=== PATIENT | male | born 1980 | race Caucasian/White ===

== ENCOUNTER 2017-03-09 10:35 | Inpatient (IN) | payer OTHER ==
[~2017-03-09] VITALS: Ht 182.9 cm; Wt 74.8 kg
[2017-03-09] VITALS (7 sets, daily range): BP systolic 134–205; BP diastolic 68–110
[~2017-03-09 10:35] MED LIST: HUMALOG100 UNIT/1 SUBQ; LANTUS SOL100 UNIT/1 SUBQ; LEVOTHYROXINE75 MCG ORAL; LOSARTAN POTASS25 MG ORAL
[2017-03-09] MEDS ORDERED: Morphine Sulfate 4mg/ml Inj IVP ONE (11:00)
[2017-03-09] MEDS ORDERED: Metoclopramide 10mg/2ml Inj IVP ONE (11:00)
--- NOTE | 2017-03-09 11:14 | Emergency Room Report ---
History of Present Illness General Chief Complaint: Abdominal Pain Source: Patient Present Illness HPI Patient present with complaints of epigastric discomfort and vomiting Patient reports that initially symptoms started on Saturday He had done better by Saturday an is able to eat a small amountd however the symptoms again started Denies any chest pain or shortness of breath He has increased cramping in the epigastric mid abdomen Denies any lower abdominal pain Denies any fevers or chills denies any dysuria frequency denies any recent travel denies any rash Allergies: Coded Allergies: CEFACLOR (Verified Allergy, Unknown, 07/22/15) PENICILLINS (Verified Allergy, Unknown, 07/22/15) Patient History Past Medical History: see triage record Pertinent Family History: none Reviewed Nursing Documentation: PMH: Agreed, PSxH: Agreed Nursing Documentation-PMH Hx Diabetes: Yes - DM1 Hx Dialysis: Yes - CKD Stg4 Review of Systems All Other Systems: negative except mentioned in HPI Physical Exam Vital Signs Date Time Temp Pulse Resp B/P (MAP) Pulse Ox O2 Delivery O2 Flow Rate FiO2 03/09/17 10:41 97.5 93 16 199/107 99 Room Air Sp02 EP Interpretation: reviewed, normal General Appearance: well appearing, no apparent distress Head: normocephalic, atraumatic Eyes: bilateral eye PERRL, bilateral eye EOMI ENT: hearing grossly normal, normal pharynx, TMs + canals normal, uvula midline Neck: full range of motion, supple, no meningismus, no bony tend Respiratory: lungs clear, normal breath sounds, no rhonchi, no respiratory distress, no retraction, no accessory muscle use Cardiovascular #1: normal peripheral pulses, regular rate, rhythm, no edema, no gallop, no JVD, no murmur Gastrointestinal: normal bowel sounds, non tender - On palpation however subjectively points to the epigastric region, soft, no mass, no organomegaly, non-distended, no guarding, no hernia, no pulsatile mass, no rebound Genitourinary: no CVA tenderness Musculoskeletal: normal inspection Neurologic: oriented x3, responsive, family psychologist III-XII nml as tested, motor strength/ tone normal, sensory intact Psychiatric: mood/affect normal Skin: normal color, no rash, warm/dry, palpation normal Lymphatic: normal inspection, no adenopathy Medical Decision Making Diagnostic Impression: Primary Impression: Renal failure (ARF), acute on chronic Additional Impression: Vomiting ER Course The patient's blood work revealed significantly elevated kidney function Talking to the patient he now provides information regarding worsening renal disease being on a transplant list This was not initially provided as far as history Patient's kidney function however has worsened significantly from previous At this time further hydrated and admitted for further care Labs Test 03/09/17 11:15 03/09/17 12:05 White Blood Count 7.8 K/UL (4.8-10.8) Red Blood Count 3.25 M/UL (4.70-6.10) Hemoglobin 9.8 G/DL (14.2-18.0) Hematocrit 28.5 % (42.0-52.0) Mean Corpuscular Volume 88 FL (80-99) Mean Corpuscular Hemoglobin 30.1 PG (27.0-31.0) Mean Corpuscular Hemoglobin Concent 34.4 G/DL (32.0-36.0) Red Cell Distribution Width 11.8 % (11.6-14.8) Platelet Count 162 K/UL (150-450) Mean Platelet Volume 6.6 FL (6.5-10.1) Neutrophils (%) (Auto) 80.2 % (45.0-75.0) Lymphocytes (%) (Auto) 13.5 % (20.0-45.0) Monocytes (%) (Auto) 3.4 % (1.0-10.0) Eosinophils (%) (Auto) 1.7 % (0.0-3.0) Basophils (%) (Auto) 1.1 % (0.0-2.0) Sodium Level 139 MMOL/L (136-145) Potassium Level 4.0 MMOL/L (3.5-5.1) Chloride Level 105 MMOL/L (98-107) Carbon Dioxide Level 22 MMOL/L (21-32) Anion Gap 12 mmol/L (5-15) Blood Urea Nitrogen 81 mg/dL (7-18) Creatinine 7.5 MG/DL (0.55-1.30) Estimat Glomerular Filtration Rate 8.2 mL/min (>60) Glucose Level 202 MG/DL (74-106) Calcium Level 8.9 MG/DL (8.5-10.1) Total Bilirubin 0.5 MG/DL (0.2-1.0) Aspartate Amino Transf (AST/SGOT) 20 U/L (15-37) Alanine Aminotransferase (ALT/SGPT) 21 U/L (12-78) Alkaline Phosphatase 122 U/L (46-116) Total Protein 6.7 G/DL (6.4-8.2) Albumin 3.0 G/DL (3.4-5.0) Globulin 3.7 g/dL Albumin/Globulin Ratio 0.8 (1.0-2.7) Lipase 120 U/L (73-393) Urine Color Pale yellow Urine Appearance Clear Urine pH 6 (4.5-8.0) Urine Specific [place] 1.015 (1.005-1.035) Urine Protein 4+ (NEGATIVE) Urine Glucose (UA) 3+ (NEGATIVE) Urine Ketones Negative (NEGATIVE) Urine Occult Blood 4+ (NEGATIVE) Urine Nitrite Negative (NEGATIVE) Urine Bilirubin Negative (NEGATIVE) Urine Urobilinogen Normal MG/DL (0.0-1.0) Urine Leukocyte Esterase Negative (NEGATIVE) Urine RBC 10-15 /HPF (0 - 0) Urine WBC 0-2 /HPF (0 - 0) Urine Squamous Epithelial Cells Occasional /LPF Urine Bacteria Occasional /HPF (NONE) Urine Yeast Few /HPF (NONE) Rhythm Strip Diag. Results EP Interpretation: yes Rate: 66 Rhythm: NSR, no PVC's, no ectopy Last Vital Signs Date Time Temp Pulse Resp B/P (MAP) Pulse Ox O2 Delivery O2 Flow Rate FiO2 03/09/17 10:41 97.5 93 16 199/107 99 Room Air Status: improved Disposition: ADMITTED INPATIENT Condition: Serious JOSI SWENSON D.O. Mar 09, 2017 11:14
[2017-03-09 11:40] LABS: BASOPHILS % (AUTO) 1.1 % (0.0-2.0); EOSINOPHILS % (AUTO) 1.7 % (0.0-3.0); LYMPHOCYTES % (AUTO) 13.5 % (20.0-45.0); MEAN CORPUSCULAR HEMOGLOBIN 30.1 PG (27.0-31.0); MEAN CORPUSCULAR HGB CONC 34.4 G/DL (32.0-36.0); MEAN CORPUSCULAR VOLUME 88 FL (80-99); MEAN PLATELET VOLUME 6.6 FL (6.5-10.1); MONOCYTES % (AUTO) 3.4 % (1.0-10.0); NEUTROPHILS % (AUTO) 80.2 % (45.0-75.0); PLATELET COUNT 162 K/UL (150-450); RED BLOOD COUNT 3.25 M/UL (4.70-6.10); RED CELL DISTRIBUTION WIDTH 11.8 % (11.6-14.8); WHITE BLOOD COUNT 7.8 K/UL (4.8-10.8)
[2017-03-09 11:51] LABS: ANION GAP 12 mmol/L (5-15); CALCIUM 8.9 MG/DL (8.5-10.1); CARBON DIOXIDE 22 MMOL/L (21-32); CHLORIDE 105 MMOL/L (98-107); CREATININE 7.5 MG/DL (0.55-1.30); GLOMERULAR FILTRATION RATE 8.2 mL/min (>60); SODIUM 139 MMOL/L (136-145)
[2017-03-09 11:55] LABS: ALANINE AMINOTRANSFERASE 21 U/L (12-78); ALBUMIN/GLOBULIN RATIO 0.8 (1.0-2.7); ASPARTATE AMINO TRANSFERASE 20 U/L (15-37); LIPASE 120 U/L (73-393); TOTAL PROTEIN 6.7 G/DL (6.4-8.2)
[2017-03-09 12:55] LABS: APPEARANCE,URINE CLEAR; KETONES,URINE NEGATIVE (NEGATIVE); LEUKOCYTE ESTERASE ,URINE NEGATIVE (NEGATIVE); NITRITE,URINE NEGATIVE (NEGATIVE); PH,URINE 6 (4.5-8.0); PROTEIN,URINE 4+ (NEGATIVE); UROBILINOGEN,URINE NORMAL MG/DL (0.0-1.0)
[2017-03-09 13:16] LABS: BACTERIA,URINE OCCASIONAL /HPF; SQUAMOUS EPITHELIAL CELL,UR OCCASIONAL /LPF (NONE/OCC); WBC,URINE 0-2 /HPF (0 - 0); YEAST,URINE FEW /HPF
[2017-03-09] MEDS ORDERED: Enalaprilat 2.5mg/2ml Inj IV ONE (13:45)
[2017-03-09] MEDS ORDERED: cloNIDine 0.2mg Tab ORAL ONE (14:00)
[2017-03-09] MEDS ORDERED: Acetaminophen 500mg (ES) tab ORAL PRN (15:00)
[2017-03-09] MEDS: NovoLOG Insulin Flexpen SUBQ SCH ×3 (17:15→20:58)
[2017-03-09] MEDS: HydrALAZINE 50mg tab ORAL SCH ×2 (17:16→21:39)
[2017-03-09] MEDS: Heparin 5000 units/ml inj SUBQ SCH (20:34)
[2017-03-09] MEDS ORDERED: Levemir Flexpen SUBQ SCH (21:00)
[2017-03-10] VITALS: BP 141/82
[2017-03-10 04:00] VITALS: BP 158/96
[2017-03-10] MEDS: HydrALAZINE 50mg tab ORAL SCH ×2 (06:02→15:04)
[2017-03-10] MEDS: NovoLOG Insulin Flexpen SUBQ SCH ×3 (06:30→16:30)
[2017-03-10 07:52] VITALS: BP 163/94
[2017-03-10 08:33] LABS: ALANINE AMINOTRANSFERASE 19 U/L (12-78); ALBUMIN/GLOBULIN RATIO 0.8 (1.0-2.7); ANION GAP 10 mmol/L (5-15); ASPARTATE AMINO TRANSFERASE 18 U/L (15-37); CALCIUM 8.2 MG/DL (8.5-10.1); CARBON DIOXIDE 22 MMOL/L (21-32); CHLORIDE 109 MMOL/L (98-107); CREATININE 6.9 MG/DL (0.55-1.30); POTASSIUM 4.5 MMOL/L (3.5-5.1); SODIUM 141 MMOL/L (136-145); TOTAL PROTEIN 5.6 G/DL (6.4-8.2)
[2017-03-10] MEDS: Heparin 5000 units/ml inj SUBQ SCH (08:55)
[2017-03-10] MEDS ORDERED: Losartan 25mg tab ORAL SCH (09:00)
[2017-03-10] MEDS ORDERED: NS 500ML ONE ×3 (09:10→17:09)
--- NOTE | 2017-03-10 09:35 | Diagnostic Imaging Report ---
Indication: Abdominal pain Technique: Renal ultrasound Comparison: None Findings: The right kidney measures 12.2 cm in length. The left kidney measures 12.7 cm in length. There is no hydronephrosis. No sonographically evident renal calculi are seen. Bladder is grossly unremarkable. Visualized IVC is unremarkable. Impression: No hydronephrosis or sonographically evident renal calculi. Clinical correlation recommended.
[2017-03-10 12:02] VITALS: BP 168/90
[2017-03-10 14:50] VITALS: BP 119/69
[2017-03-10 16:00] VITALS: BP 140/72
--- NOTE | 2017-03-10 17:15 | History and Physical Report ---
DATE OF ADMISSION: 03/09/2017 CHIEF COMPLAINT: Intractable nausea and vomiting, acute on chronic renal failure. HISTORY OF PRESENT ILLNESS: The patient is a pleasant 36-year-old male who presented with complaints of intractable nausea and vomiting for several days. According to the patient, he was well until several days prior to admission when he developed severe nausea and vomiting with dry heaves. He denies any ill contacts. No melena or bright red blood per rectum. He presented to the emergency room. There, he was noted to have creatinine of 7.5. According to the patient, his baseline is around 5. His initial workup included UA, CBC, CMP, and renal ultrasound which were unremarkable. He is now admitted for further evaluation and care. PAST MEDICAL HISTORY: As above. He has history of insulin-dependent diabetes. PAST SURGICAL HISTORY: Includes knee surgery. CURRENT MEDICATIONS: Reconciled and reviewed. ALLERGIES: Include cefaclor and penicillin. SOCIAL HISTORY: Significant for history of cancer. SOCIAL HISTORY: Negative for tobacco, ethanol, or drugs. REVIEW OF SYSTEMS: GENERAL: No fever or chills. HEENT: No headaches or visual changes. CARDIOPULMONARY: No chest pain or shortness of breath. GASTROINTESTINAL: Positive nausea and vomiting. Positive dry heaves. No diarrhea. GENITOURINARY: No urgency or frequency. MUSCULOSKELETAL: No joint pain or swelling. NEUROLOGIC: No evidence of seizures. PHYSICAL EXAMINATION: VITAL SIGNS: Temperature 98, pulse 92, respirations 18, and blood pressure 158/96. GENERAL: The patient is a well-developed male, in no apparent distress. He is awake, alert, and oriented x4. HEENT: His pupils are . NECK: Supple. HEART: Regular rate and rhythm. LUNGS: Clear. ABDOMEN: Soft, nontender, nondistended. EXTREMITIES: Without clubbing, cyanosis, or edema. LABORATORY DATA: Sodium 139, potassium was 4, BUN of 81, creatinine 7.5. White count 8, hemoglobin 10, hematocrit 28. UA showed 10-15 RBCs. ASSESSMENT: This is a pleasant male admitted with complaints of intractable nausea and vomiting, unclear etiology, cannot rule out some type of gastroenteritis. His nausea and vomiting may be due to uremia. PLAN: Follow up renal ultrasound. Aggressive hydration. Follow up renal function. Antiemetic therapy. We will follow up pending laboratories and reassess the patient. He possibly could be discharged. He is currently tolerating regular diet. Matt Argueta M.D. DR: Ross JOB#: [id number] CC:
--- NOTE | 2017-03-12 08:29 | Discharge Summary ---
Discharge Summary Hospital Course Date of Admission Mar 09, 2017 at 12:41 Date of Discharge Mar 10, 2017 at 17:10 Admitting Diagnosis renal failure HPI Rey Muniz is a 36 year old male who was admitted on Mar 09, 2017 at 12:41 for Renal Failure Hospital Course dc summary [id number] Discharge Medications Continued Medications: Insulin Glargine (Lantus) 100 Unit/1 Ml Insuln.pen 25 SUBQ BEDTIME, #1 EA 0 Refills Insulin Lispro (Humalog) 100 Unit/1 Ml Vial 0 SUBQ, #1 UNITS 0 Refills Levothyroxine Sodium* (Levothyroxine Sodium*) 75 Mcg Tablet 75 MCG ORAL DAILY, TAB Take in the morning on an empty stomach, at least 30 minutes before food. Losartan Potassium* (Losartan Potassium*) 25 Mg Tablet 25 MG ORAL DAILY, TAB Discharge Condition Upon Discharge: stable Discharge Disposition Patient was discharged to Home (01) Discharge Diagnoses: Discharge Instructions Discharge Instructions Special Instructions I have been assigned to complete a D/C Summary on this account. I was not involved in the patient management Stacy Buckley NP ([place]) Mar 12, 2017 08:29
--- NOTE | 2017-03-12 17:00 | Discharge Summary 2 SIG ---
DATE OF ADMISSION: 03/09/2017 DATE OF DISCHARGE: 03/10/2017 REASON FOR ADMISSION: 36-year-old male with history of diabetes, chronic kidney disease stage 4, hypertension, and hypothyroidism, presented to emergency room with intractable nausea and vomiting. He was found to have significantly worsened renal parameters. Upon admission, creatinine -7.5 and BUN -81. Renal ultrasound was essentially unremarkable. No hydronephrosis, no calculi were seen. Bladder was unremarkable. The patient was hydrated in the emergency room. Antiemetic provided. However, the patient remained weak, unable to tolerate diet, and was admitted for further management. HOSPITAL COURSE: The patient was admitted. The patient was aggressively hydrated. Antiemetic provided as needed. Diet started and advanced as tolerated. Next day, creatinine down to 6.9. Electrolytes stable. The patient was able to tolerate regular diet. Nausea and vomiting likely were secondary to uremia, resolved. Blood pressure was managed with the current regimen and was stable. Blood sugar was managed with long-acting Levemir daily and sliding scale of insulin on as needed basis. Blood sugar was stable. Urinalysis with evidence of +4 protein, and 10 to 15 RBC. The patient was stable for discharge home and follow up with the primary medical doctor within a week for monitoring of renal parameters. Due to the rapid and unexpected improvement in the patient's condition, the patient was discharged in one day. DISCHARGE DIAGNOSES: 1. Intractable nausea and vomiting, likely secondary to uremia, resolved. 2. Acute on chronic renal failure. 3. Chronic kidney disease stage 4. 4. Diabetes mellitus. DISCHARGE MEDICATIONS: See medication reconciliation list. DISCHARGE INSTRUCTIONS: The patient was discharged home. FOLLOWUP: Follow up with the primary medical doctor within a week. Matt Argueta M.D. I have been assigned to dictate discharge summary on this account and I was not involved in the patient's management. Stacy julioernst N.P. DR: ANGEL JOB#: [id number] CC: ROBERT
== END 2017-03-10 17:10 | disposition home or self-care (01) | DRG 684 ==
LOC: EMR 11:25 → 4E 12:41 → EDBEDREQ 12:51
DX: N17.9 Acute kidney failure, unspecified (principal); E11.22 Type 2 diabetes mellitus with diabetic chronic kidney disease; I12.9 Hypertensive chronic kidney disease with stage 1 through stage 4 chronic kidney disease, or unspecified chronic kidney disease; N18.4 Chronic kidney disease, stage 4 (severe); R11.2 Nausea with vomiting, unspecified
CPT/HCPCS: 36415; 76775; 80053; 81003; 82550; 83690; 85025; 87086; 99285; J1815; J2405; J2765; S5561

== ENCOUNTER 2017-08-09 21:50 | Emergency (ER) | payer BC, OTHER ==
[~2017-08-09] VITALS: Ht 180.3 cm; Wt 79.4 kg
[2017-08-09 22:05] VITALS: BP 180/97
[2017-08-09] MEDS ORDERED: Surgicel 4in x 8in TOPIC ONE ×2 (22:45→23:30)
[2017-08-09] MEDS ORDERED: Silver Nitrate Stick TOPIC ONE ×2 (23:15→23:21)
[2017-08-09 23:59] VITALS: BP 180/97
[2017-08-09] MEDS ORDERED: BACITRACIN ZIN1 EACH TOPIC (23:59)
--- NOTE | 2017-08-10 05:58 | Emergency Room Report ---
History of Present Illness General Chief Complaint: Laceration Source: Patient Present Illness HPI Patient is a 37-year-old male who presented after increased left finger injury. The patient reportedly cut his finger approximately one hours prior to arrival. Patient had previous history of end-stage renal disease and type 1 diabetes. He was the recently started on dialysis. The patient been dialyzed Saturday. He denies current anticoagulation. Allergies: Coded Allergies: CEFACLOR (Verified Allergy, Unknown, 08/09/17) PENICILLINS (Verified Allergy, Unknown, 08/09/17) Patient History Past Medical History: see triage record, DM Reviewed Nursing Documentation: PMH: Agreed; PSxH: Agreed Nursing Documentation-PMH Hx Diabetes: Yes - DM1 Hx Dialysis: Yes - CKD Stg4, T, H, Sat Review of Systems All Other Systems: negative except mentioned in HPI Physical Exam Vital Signs Date Time Temp Pulse Resp B/P (MAP) Pulse Ox O2 Delivery O2 Flow Rate FiO2 08/09/17 21:54 97.8 92 16 180/97 100 97.9 General Appearance: well appearing, no apparent distress, alert, GCS 15, non- toxic Head: normocephalic, atraumatic ENT: hearing grossly normal, normal voice Neck: full range of motion, supple Respiratory: lungs clear, normal breath sounds, no respiratory distress, speaking full sentences Cardiovascular #1: normal peripheral pulses, regular rate, rhythm, no edema Gastrointestinal: normal inspection, normal bowel sounds, non tender, soft, no mass Musculoskeletal: normal inspection, back normal, no calf tenderness Neurologic: normal inspection, alert, oriented x3, responsive, normal gait Psychiatric: mood/affect normal Skin: other - skin avulsion to left index finger Medical Decision Making Diagnostic Impression: Primary Impression: Skin avulsion Additional Impressions: Type 1 diabetes mellitus ESRD (end stage renal disease) ER Course Patient presented for skin avulsion. Differential diagnosis included was not limited to coagulopathy, anemia, arterial injury, fracture among others. Patient has a benign exam and does not appear to require any further imaging or laboratory testing at this time. The patient does not appear to be severely anemic. The patient had a small finger tip avulsion. I initially tried to apply Surgicel to control bleeding. The patient's wound was noted to have continued bleeding. wound essentially cauterized with silver nitrate. The patient had adequate hemostasis. The patient was advised to have wound recheck with his primary care physician in one to 2 days. The patient is advised to change dressings daily. return if there is any signs of infection, or persistent bleeding. Last Vital Signs Date Time Temp Pulse Resp B/P (MAP) Pulse Ox O2 Delivery O2 Flow Rate FiO2 08/09/17 23:59 97.9 16 180/97 100 97.9 08/09/17 21:54 92 Status: improved Disposition: HOME, SELF-CARE Condition: Stable Scripts Bacitracin Zinc* (BACITRACIN ZINC*) 1 Each Packet 1 APPLIC TOPIC THREE TIMES A DAY, #30 PACKET Prov: Mario Salguero 08/09/17 Patient Instructions: Deep Skin Avulsion Mario Salguero Aug 10, 2017 05:58
== END 2017-08-10 | disposition home or self-care (01) ==
LOC: EMR 22:30
DX: S61.201A Unspecified open wound of left index finger without damage to nail, initial encounter (principal); E10.22 Type 1 diabetes mellitus with diabetic chronic kidney disease; N18.6 End stage renal disease; Z99.2 Dependence on renal dialysis; Z88.0 Allergy status to penicillin
CPT/HCPCS: 99283

== ENCOUNTER 2018-05-22 16:05 | Inpatient (IN) | payer BC ==
[~2018-05-22] VITALS: Ht 175.3 cm; Wt 76.7 kg
[~2018-05-22 16:05] MED LIST changes: +BACITRACIN ZIN1 EACH TOPIC
[2018-05-22 16:22] VITALS: BP 96/64
[2018-05-22] MEDS ORDERED: NS 250 ML IVPB ONE (16:30)
--- NOTE | 2018-05-22 16:35 | Emergency Room Report ---
History of Present Illness General Chief Complaint: General Complaint Source: Patient Present Illness HPI 37-year-old male with history of diabetes, also end-stage renal disease on peritoneal dialysis daily, presenting with 2 days of diarrhea, generalized weakness, nausea and vomiting. Says that he had more than 5 episodes of watery nonbloody diarrhea. Also a few episodes of nonbilious nonbloody vomiting. Has no history of any abdominal surgeries. Says that he checked his blood pressure and it was a systolic 84 and is normal is actually high because he has high blood pressure. No recent antibiotic use or recent trauma. Denies any fever chills. Denies any current chest pain shortness of breath or abdominal pain Allergies: Coded Allergies: CEFACLOR (Verified Allergy, Unknown, 08/09/17) PENICILLINS (Verified Allergy, Unknown, 08/09/17) Patient History Past Medical History: see triage record Past Surgical History: none Pertinent Family History: none Reviewed Nursing Documentation: PMH: Agreed; PSxH: Agreed Nursing Documentation-PMH Past Medical History: No History, Except For Hx Diabetes: Yes - DM1 Hx Dialysis: Yes - CKD Stg4, T, H, Sat Peritoneal Review of Systems All Other Systems: negative except mentioned in HPI Physical Exam Vital Signs Date Time Temp Pulse Resp B/P (MAP) Pulse Ox O2 Delivery O2 Flow Rate FiO2 05/22/18 16:13 98 20 92/68 98 Room Air 05/22/18 16:22 97.7 05/22/18 16:22 94 Sp02 EP Interpretation: reviewed, normal General Appearance: alert, GCS 15, non-toxic, mild distress Head: normocephalic, atraumatic Eyes: bilateral eye normal inspection, bilateral eye PERRL, bilateral eye EOMI ENT: normal ENT inspection, normal pharynx, normal voice, moist mucus membranes Neck: normal inspection, full range of motion, supple Respiratory: normal inspection, lungs clear, normal breath sounds, no respiratory distress, no retraction, no wheezing, speaking full sentences, chest symmetrical Cardiovascular #1: normal inspection, regular rate, rhythm, no edema, normal capillary refill Cardiovascular #2: 2+ radial (R), 2+ radial (L) Gastrointestinal: non tender, soft, non-distended, no guarding, other - Peritoneal dialysis catheter in place, otherwise nontender abdomen throughout Musculoskeletal: normal inspection, back normal, normal range of motion, non- tender Neurologic: normal inspection, alert, oriented x3, responsive, motor strength/ tone normal, sensory intact, normal gait, speech normal Psychiatric: normal inspection, judgement/insight normal, memory normal Skin: normal inspection, normal color, no rash, warm/dry, well hydrated, normal turgor Procedures Critical Care Time Critical Care Time 40 minutes of CC time 37 yo M hypotensive, mult episodes of hypoglycemia PLAN: IV access, labs, glucose Anticipate admission CC time also includes review of labs, review of EMR, discussion with family and paperwork from SNF, d/w hospitalist CC could include dosing of pressors, additional Abx CC time does not include procedures Medical Decision Making Diagnostic Impression: Primary Impression: Dehydration Additional Impressions: Nausea vomiting and diarrhea Hypoglycemia ESRD (end stage renal disease) on dialysis Pericardial effusion ER Course 37-year-old male with nausea vomiting diarrhea, low blood pressure DDX: Gastroenteritis, C. difficile, dehydration, electronic disturbances, at this time his abdomen is very soft nontender not concerned with acute intra- abdominal surgical pathology Plan: Obtain labs, ua, EKG, CXR Fluids ER course: Patient given IV fluids, pain medication, Zofran Also given empiric antibiotics after peritoneal fluid was sent MRI showing possibility of pericardial effusion versus temp not, I did a bedside ultrasound myself, does not exhibit temp not physiology, but there is a moderate pericardial effusion present. Patient is not having any active chest pain. He was given fluids as well as antibiotics. Also has possibility of cholecystitis, patient is not having any right upper quadrant pain or tenderness so unlikely this, could be related to heart dysfunction. Hypotension is likely secondary to sepsis, possibility of peritonitis, I discussed case with Dr. gomes, he is comfortable excepting the patient to the SDU. MAP remains above 60 Disposition: Patient is to be admitted to SDU D/W hospitalist Dr Gomes Please note that this Emergency Department Report was dictated using [employer] operator technology software, occasionally this can lead to erroneous entry secondary to interpretation by the dictation equipment. EKG Diagnostic Results EP Interpretation: Yes Rate: normal Rhythm: NSR ST Segments: No acute changes ASA given to patient: No Rhythm Strip EP Interpretation: Yes Rate: 61 Rhythm: NSR, no PVCs, no ectopy Chest X-ray CXR: Ordered: Yes 1 view Indication: Pain EP interpretation: Yes Interpretation: No consolidation, no effusion, no PTX, no acute cardiopulmonary disease Impression: No acute disease Electronically signed by Abisai Langston MD Laboratory Tests Test 05/22/18 16:45 White Blood Count 7.9 K/UL (4.8-10.8) Red Blood Count 3.32 M/UL (4.70-6.10) L Hemoglobin 8.6 G/DL (14.2-18.0) L Hematocrit 28.5 % (42.0-52.0) L Mean Corpuscular Volume 86 FL (80-99) Mean Corpuscular Hemoglobin 25.9 PG (27.0-31.0) L Mean Corpuscular Hemoglobin Concent 30.3 G/DL (32.0-36.0) L Red Cell Distribution Width 16.8 % (11.6-14.8) H Platelet Count 279 K/UL (150-450) Mean Platelet Volume 6.4 FL (6.5-10.1) L Neutrophils (%) (Auto) 71.5 % (45.0-75.0) Lymphocytes (%) (Auto) 10.2 % (20.0-45.0) L Monocytes (%) (Auto) 13.6 % (1.0-10.0) H Eosinophils (%) (Auto) 3.1 % (0.0-3.0) H Basophils (%) (Auto) 1.6 % (0.0-2.0) Sodium Level 133 MMOL/L (136-145) L Potassium Level 4.0 MMOL/L (3.5-5.1) Chloride Level 94 MMOL/L (98-107) L Carbon Dioxide Level 21 MMOL/L (21-32) Anion Gap 18 mmol/L (5-15) H Blood Urea Nitrogen 98 mg/dL (7-18) H Creatinine 17.0 MG/DL (0.55-1.30) H Estimate Glomerular Filtration Rate 3.2 mL/min (>60) Glucose Level 35 MG/DL (74-106) *L Lactic Acid Level 1.50 mmol/L (0.4-2.0) Calcium Level 7.8 MG/DL (8.5-10.1) L Total Bilirubin 0.3 MG/DL (0.2-1.0) Aspartate Amino Transferase (AST) 27 U/L (15-37) Alanine Aminotransferase (ALT) 41 U/L (12-78) Alkaline Phosphatase 140 U/L (46-116) H Troponin I 0.046 ng/mL (0.000-0.056) Total Protein 6.2 G/DL (6.4-8.2) L Albumin 2.3 G/DL (3.4-5.0) L Globulin 3.9 g/dL Albumin/Globulin Ratio 0.6 (1.0-2.7) L CT/MRI/US Diagnostic Results CT/MRI/US Diagnostic Results : Imaging Test Ordered: MRI abd Impression Motion artifact Large partially imaged pericardial effusion measuring up to 2.8 cm, clinically correlate for pericarditis or tamponade Diffusely appearing thickened gallbladder wall measuring around 7-8 mm which can be seen with cholecystitis although nonspecific in the setting of heart dysfunction/failure, clinically correlate The hepatic veins and inferior vena cava appear prominent There appears to be enlargement of the paraumbilical vein for example axial 19 through 35 of series 6 The gallbladder appears nondistended. No definite gallstones identified Difficult to exclude the possibility of bowel small bowel wall thickening, enteritis as the visualized bowel appears underdistended No evidence of bowel distention Bilateral posterior layering pleural effusions No definite evidence of hydronephrosis Last Vital Signs Date Time Temp Pulse Resp B/P (MAP) Pulse Ox O2 Delivery O2 Flow Rate FiO2 05/22/18 16:22 70 18 Room Air 94 05/22/18 16:22 97.7 96/64 94 Disposition: ADMITTED INPATIENT Condition: Critical Abisai Langston M.D. May 22, 2018 16:35
--- NOTE | 2018-05-22 16:43 | Diagnostic Imaging Report ---
Indication: Chest pain Comparison: None A single view chest radiograph was obtained. Findings: Cardiomediastinal appearance is within normal limits for age. The lungs are clear. Pulmonary vascularity is appropriate. The diaphragmatic contour is smooth and costophrenic angles are sharp. No pleural effusions are identified. The bones are unremarkable. Impression: No acute findings
[2018-05-22 16:59] LABS: BASOPHILS % (AUTO) 1.6 % (0.0-2.0); EOSINOPHILS % (AUTO) 3.1 % (0.0-3.0); HEMATOCRIT 28.5 % (42.0-52.0); HEMOGLOBIN 8.6 G/DL (14.2-18.0); LYMPHOCYTES % (AUTO) 10.2 % (20.0-45.0); MEAN CORPUSCULAR VOLUME 86 FL (80-99); MONOCYTES % (AUTO) 13.6 % (1.0-10.0); NEUTROPHILS % (AUTO) 71.5 % (45.0-75.0); PLATELET COUNT 279 K/UL (150-450); RED BLOOD COUNT 3.32 M/UL (4.70-6.10); RED CELL DISTRIBUTION WIDTH 16.8 % (11.6-14.8); WHITE BLOOD COUNT 7.9 K/UL (4.8-10.8)
[2018-05-22 17:30] LABS: ALANINE AMINOTRANSFERASE 41 U/L (12-78); ALBUMIN 2.3 G/DL (3.4-5.0); ALBUMIN/GLOBULIN RATIO 0.6 (1.0-2.7); ALKALINE PHOSPHATASE 140 U/L (46-116); ANION GAP 18 mmol/L (5-15); ASPARTATE AMINO TRANSFERASE 27 U/L (15-37); BILIRUBIN,TOTAL 0.3 MG/DL (0.2-1.0); BLOOD UREA NITROGEN 98 mg/dL (7-18); CALCIUM 7.8 MG/DL (8.5-10.1); CARBON DIOXIDE 21 MMOL/L (21-32); CHLORIDE 94 MMOL/L (98-107); SODIUM 133 MMOL/L (136-145)
[2018-05-22] MEDS ORDERED: TOUJEO SOL300 UNIT/1 SQ (17:54)
[2018-05-22] MEDS ORDERED: CARVEDILOL6.25 MG ORAL (17:54)
[2018-05-22] MEDS ORDERED: CALCIUM ACETAT667 MG PO (17:54)
[2018-05-22] MEDS ORDERED: NORVASC5 MG ORAL (17:54)
[2018-05-22] MEDS ORDERED: HYDRALAZINE HCL25 M1 ORAL (17:54)
[2018-05-22] MEDS ORDERED: LOSARTAN POTASS50 MG ORAL (17:55)
[2018-05-22] MEDS ORDERED: D5 1/2NS 1,000 ML IV ONE (18:00)
[2018-05-22] MEDS ORDERED: Gadavist 7.5mMol/7.5ml vial IV PRN (18:15)
[2018-05-22 18:22] VITALS: BP 86/42
[2018-05-22] MEDS ORDERED: Morphine Sulfate 2mg/ml Inj IVP ONE ×2 (19:45→22:00)
--- NOTE | 2018-05-22 19:51 | History & Physical ---
History and Physical History & Physicial Last 24 Hour Vital Signs Date Time Temp Pulse Resp B/P (MAP) Pulse Ox O2 Delivery O2 Flow Rate FiO2 05/22/18 18:22 97.8 82 18 86/42 99 Room Air 05/22/18 16:22 70 18 Room Air 94 05/22/18 16:22 97.7 70 18 96/64 94 Room Air 05/22/18 16:13 98 20 92/68 98 Room Air H & P dictated, Rikki Gomes MD May 22, 2018 19:51
[2018-05-22] MEDS ORDERED: Vancomycin 1.5gm/D5W 275ml 250 ML IVPB ONE (20:15)
[2018-05-22] MEDS ORDERED: Nitroglycerin Subl 0.4mg tab SL PRN (20:30)
[2018-05-22 22:30] VITALS: BP 90/64
[2018-05-22] MEDS: Heparin 5000 units/ml inj SUBQ SCH (22:54)
[2018-05-22] MEDS ORDERED: GENTAMICIN IVPB ONE (23:30)
[2018-05-22] MEDS ORDERED: NS IVPB ONE (23:30)
[2018-05-23] VITALS (16 sets, daily range): BP systolic 71–116; BP diastolic 15–68
[2018-05-23] MEDS: Morphine Sulfate 2mg/ml Inj IVP PRN ×2 (01:57→08:44)
[2018-05-23] MEDS ORDERED: DOPamine 400mg/250ml 250 ML IV SCH (04:00)
[2018-05-23] MEDS ORDERED: Lidocaine 1% Plain 30 ml INJ ONE (04:45)
[2018-05-23] MEDS ORDERED: Heparin 2000 units/Ns 1000ml INJ ONE (04:45)
[2018-05-23 05:59] LABS: BASOPHILS % (AUTO) 1.3 % (0.0-2.0); EOSINOPHILS % (AUTO) 0.6 % (0.0-3.0); HEMATOCRIT 26.4 % (42.0-52.0); HEMOGLOBIN 8.2 G/DL (14.2-18.0); LYMPHOCYTES % (AUTO) 4.4 % (20.0-45.0); MEAN CORPUSCULAR VOLUME 85 FL (80-99); MONOCYTES % (AUTO) 10.1 % (1.0-10.0); NEUTROPHILS % (AUTO) 83.6 % (45.0-75.0); PLATELET COUNT 212 K/UL (150-450); WHITE BLOOD COUNT 8.4 K/UL (4.8-10.8)
[2018-05-23 06:07] LABS: INR 1.1 (0.9-1.1)
[2018-05-23 06:23] LABS: ALANINE AMINOTRANSFERASE 36 U/L (12-78); ALBUMIN 1.9 G/DL (3.4-5.0); ALBUMIN/GLOBULIN RATIO 0.6 (1.0-2.7); ALKALINE PHOSPHATASE 109 U/L (46-116); AMYLASE 17 U/L (25-115); ANION GAP 18 mmol/L (5-15); ASPARTATE AMINO TRANSFERASE 26 U/L (15-37); BILIRUBIN,TOTAL 0.3 MG/DL (0.2-1.0); BLOOD UREA NITROGEN 98 mg/dL (7-18); CALCIUM 7.1 MG/DL (8.5-10.1); CARBON DIOXIDE 19 MMOL/L (21-32); CHLORIDE 94 MMOL/L (98-107); CREATININE 16.2 MG/DL (0.55-1.30); POTASSIUM 4.5 MMOL/L (3.5-5.1); SODIUM 130 MMOL/L (136-145)
[2018-05-23] MEDS: NovoLOG Insulin Flexpen SUBQ SCH ×2 (06:27→13:21)
[2018-05-23] MEDS ORDERED: Heparin 2000 units/Ns 1000ml INJ PRN (06:30)
[2018-05-23] MEDS ORDERED: Lidocaine 1% Plain 30 ml INJ PRN (06:30)
[2018-05-23] MEDS: Heparin 5000 units/ml inj SUBQ SCH (08:58)
[2018-05-23] MEDS ORDERED: Carvedilol 6.25mg Tab ORAL SCH (09:00)
[2018-05-23] MEDS ORDERED: HydrALAZINE 25mg tab ORAL SCH (09:00)
[2018-05-23] MEDS ORDERED: Losartan 50mg tab ORAL SCH (09:00)
--- NOTE | 2018-05-23 09:25 | Diagnostic Imaging Report ---
Indication: Abdominal pain Technique: MRI of the abdomen was performed in a 1.5 Jesenia magnet. Pulse sequences obtained include coronal and axial T2 single shot fast spin echo breathhold, Axial T1 FSPGR in/out phase, Axial T2 FSE w/ fat saturation, Axial 2-D FIESTA, Ax/Cor T1 LAVA. Comparison: None Findings: There is a moderate to large pericardial effusion. Small bilateral pleural effusions are present. Trace ascites noted. The stomach and visualized bowel appears nondistended. There is thickening of the wall the gallbladder which is moderate nonspecific in nature. There is no observed biliary ductal dilatation. The spleen is unremarkable. The liver is enlarged measuring 22 cm. No gross anomalies of the pancreas identified. No hydronephrosis identified. There is no adrenal mass. IMPRESSION: Moderate to large pericardial effusion. Hepatomegaly Bilateral pleural effusions. Trace ascites Thickening of the gallbladder wall, nonspecific. [facility] has communicated the preliminary results to the Emergency Department. Their findings are largely concordant with this report. .
--- NOTE | 2018-05-23 09:37 | Consultation ---
History of Present Illness General Date patient seen: May 23, 2018 Chief Complaint: General Complaint Present Illness HPI 37 year old male with hx of HTN, DM, hypothyoid, ESRF on peritoneal dialysis, presented to ER with CC of nausea, vomiting. Pt was admitted to [facility] and during the night he was transferred to ICU because of hypotension and was started on Dopamine drip. Currently pt is awake, still nauseous. is at the bed site who give all the detailed information. Allergies: Coded Allergies: CEFACLOR (Verified Allergy, Unknown, 08/09/17) PENICILLINS (Verified Allergy, Unknown, 08/09/17) Medication History Scheduled Amlodipine Besylate (Norvasc), 5 MG ORAL DAILY, (Reported) Calcium Acetate (Calcium Acetate), 667 MG PO TID, (Reported) Carvedilol* (Carvedilol*), 6.25 MG ORAL BID, (Reported) Hydralazine Hcl* (Hydralazine Hcl*), 25 MG ORAL BID, (Reported) Insulin Glargine (Lantus), 25 SUBQ BEDTIME, (Reported) Losartan Potassium* (Losartan Potassium*), 50 MG ORAL DAILY, (Reported) Miscellaneous Medications Insulin Glargine,Hum.rec.anlog (Toujeo Solostar), 300 UNIT SQ, (Reported) Insulin Lispro (Humalog), 0 SUBQ, (Reported) Discontinued Medications Bacitracin Zinc* (Bacitracin Zinc*), 1 APPLIC TOPIC THREE TIMES A DAY Discontinued Reason: Pt stopped taking med Levothyroxine Sodium* (Levothyroxine Sodium*), 75 MCG ORAL DAILY, (Reported) Discontinued Reason: Pt stopped taking med Losartan Potassium* (Losartan Potassium*), 50 MG ORAL DAILY, (Reported) Discontinued Reason: Prescription changed Patient History Healthcare decision maker hinself Resuscitation status Full Code Advanced Directive on File No Past Medical/Surgical History Past Medical/Surgical History: (1) Type 1 diabetes mellitus (2) ESRD (end stage renal disease) on dialysis Review of Systems Constitutional: Reports: malaise, weakness Gastrointestinal: Reports: nausea, vomiting Physical Exam General Appearance: WD/WN Lines, tubes and drains: peripheral, dialysis access HEENT: normocephalic, atraumatic Neck: non-tender, normal alignment Respiratory/Chest: chest wall non-tender, lungs clear Breasts: no masses Cardiovascular/Chest: normal rate, regular rhythm Genitourinary/Rectal: normal genital exam, normal prostate exam Last 24 Hour Vital Signs Date Time Temp Pulse Resp B/P (MAP) Pulse Ox O2 Delivery O2 Flow Rate FiO2 05/23/18 07:00 70/45 05/23/18 06:30 98 Nasal Cannula 4.0 36 05/23/18 06:30 Nasal Cannula 4.0 36 05/23/18 06:00 150 20 88/49 (62) 98 05/23/18 06:00 90/50 05/23/18 05:30 79 20 95/59 (71) 98 05/23/18 05:02 88/49 05/23/18 05:00 150 20 88/49 (62) 98 05/23/18 04:48 98 Nasal Cannula 4.0 36 05/23/18 04:47 Nasal Cannula 4.0 36 05/23/18 04:46 51 14 Room Air 36 05/23/18 04:30 97.1 52 20 88/49 (62) 98 05/23/18 04:00 Room Air 05/23/18 04:00 97.1 54 20 91/65 (74) 98 05/23/18 04:00 54 05/23/18 03:00 52 20 75/40 (52) 98 05/23/18 02:00 50 20 78/40 (53) 98 05/23/18 01:00 97.0 53 20 102/61 (75) 98 05/23/18 00:00 58 05/23/18 00:00 Room Air 05/23/18 00:00 97.4 48 20 71/35 (47) 98 05/23/18 00:00 Room Air 05/22/18 22:30 97.0 56 20 90/64 (73) 98 05/22/18 22:01 97.8 82 18 89/59 99 Room Air 94 05/22/18 18:22 97.8 82 18 86/42 99 Room Air 05/22/18 16:22 70 18 Room Air 94 05/22/18 16:22 97.7 70 18 96/64 94 Room Air 05/22/18 16:13 98 20 92/68 98 Room Air Intake and Output 05/22/18 05/23/18 19:00 07:00 Intake Total 1000 ml 314.3 ml Output Total 1 ml Balance 1000 ml 313.3 ml Intake Oral 0 ml 0 ml IV Total 1000 ml 314.3 ml Output Urine Total 0 ml Emesis 1 ml Laboratory Tests Test 05/22/18 16:45 05/23/18 04:30 White Blood Count 7.9 K/UL (4.8-10.8) 8.4 K/UL (4.8-10.8) Red Blood Count 3.32 M/UL (4.70-6.10) L 3.10 M/UL (4.70-6.10) L Hemoglobin 8.6 G/DL (14.2-18.0) L 8.2 G/DL (14.2-18.0) L Hematocrit 28.5 % (42.0-52.0) L 26.4 % (42.0-52.0) L Mean Corpuscular Volume 86 FL (80-99) 85 FL (80-99) Mean Corpuscular Hemoglobin 25.9 PG (27.0-31.0) L 26.3 PG (27.0-31.0) L Mean Corpuscular Hemoglobin Concent 30.3 G/DL (32.0-36.0) L 30.8 G/DL (32.0-36.0) L Red Cell Distribution Width 16.8 % (11.6-14.8) H 17.0 % (11.6-14.8) H Platelet Count 279 K/UL (150-450) 212 K/UL (150-450) Mean Platelet Volume 6.4 FL (6.5-10.1) L 7.2 FL (6.5-10.1) Neutrophils (%) (Auto) 71.5 % (45.0-75.0) 83.6 % (45.0-75.0) H Lymphocytes (%) (Auto) 10.2 % (20.0-45.0) L 4.4 % (20.0-45.0) L Monocytes (%) (Auto) 13.6 % (1.0-10.0) H 10.1 % (1.0-10.0) H Eosinophils (%) (Auto) 3.1 % (0.0-3.0) H 0.6 % (0.0-3.0) Basophils (%) (Auto) 1.6 % (0.0-2.0) 1.3 % (0.0-2.0) Sodium Level 133 MMOL/L (136-145) L 130 MMOL/L (136-145) L Potassium Level 4.0 MMOL/L (3.5-5.1) 4.5 MMOL/L (3.5-5.1) Chloride Level 94 MMOL/L (98-107) L 94 MMOL/L (98-107) L Carbon Dioxide Level 21 MMOL/L (21-32) 19 MMOL/L (21-32) L Anion Gap 18 mmol/L (5-15) H 18 mmol/L (5-15) H Blood Urea Nitrogen 98 mg/dL (7-18) H 98 mg/dL (7-18) H Creatinine 17.0 MG/DL (0.55-1.30) H 16.2 MG/DL (0.55-1.30) H Estimat Glomerular Filtration Rate 3.2 mL/min (>60) 3.3 mL/min (>60) Glucose Level 35 MG/DL (74-106) *L 207 MG/DL (74-106) #H Lactic Acid Level 1.50 mmol/L (0.4-2.0) Calcium Level 7.8 MG/DL (8.5-10.1) L 7.1 MG/DL (8.5-10.1) L Total Bilirubin 0.3 MG/DL (0.2-1.0) 0.3 MG/DL (0.2-1.0) Aspartate Amino Transf (AST/SGOT) 27 U/L (15-37) 26 U/L (15-37) Alanine Aminotransferase (ALT/SGPT) 41 U/L (12-78) 36 U/L (12-78) Alkaline Phosphatase 140 U/L (46-116) H 109 U/L (46-116) Troponin I 0.046 ng/mL (0.000-0.056) Total Protein 6.2 G/DL (6.4-8.2) L 5.3 G/DL (6.4-8.2) L Albumin 2.3 G/DL (3.4-5.0) L 1.9 G/DL (3.4-5.0) L Globulin 3.9 g/dL 3.4 g/dL Albumin/Globulin Ratio 0.6 (1.0-2.7) L 0.6 (1.0-2.7) L Prothrombin Time 12.0 SEC (9.30-11.50) H Prothromb Time International Ratio 1.1 (0.9-1.1) Activated Partial Thromboplast Time 30 SEC (23-33) Hemoglobin A1c 9.1 % (4.3-6.0) H Amylase Level 17 U/L (25-115) L Lipase 42 U/L (73-393) L Thyroid Stimulating Hormone (TSH) 14.016 uiU/mL (0.358-3.740) Height (Feet): 5 Height (Inches): 9.00 Weight (Pounds): 169 Medications Current Medications Medications (Trade) Dose Ordered Sig/Reginaldo Route PRN Reason Start Time Stop Time Status Last Admin Dose Admin Acetaminophen (Tylenol) 650 mg Q4H PRN ORAL T>100.5 05/22/18 20:15 06/21/18 20:14 Amlodipine Besylate (Norvasc) 5 mg DAILY ORAL 05/23/18 09:00 06/22/18 08:59 Carvedilol (Coreg) 6.25 mg Q12HR ORAL 05/23/18 09:00 06/22/18 08:59 Chlorhexidine Gluconate (Janna-Hex 2%) 1 applic DAILY@2000 TOPIC 05/23/18 20:00 06/22/18 19:59 Gadobutrol (Gadavist) 7.5 mmol NOW PRN IV Radiology Procedure 05/22/18 18:15 05/26/18 18:03 Heparin Sodium (Porcine) (Heparin 5000 units/ml) 5,000 units EVERY 12 HOURS SUBQ 05/22/18 21:00 06/21/18 20:59 05/23/18 08:58 Hydralazine HCl (Apresoline) 25 mg BID ORAL 05/23/18 09:00 06/22/18 08:59 Insulin Aspart (NovoLOG) BEFORE MEALS AND HS SUBQ 05/23/18 06:30 06/22/18 06:29 05/23/18 06:27 Lidocaine HCl (Xylocaine 1% 30ml) 30 ml ONCE PRN INJ picc line placement 05/23/18 06:30 05/24/18 06:29 Losartan Potassium (Cozaar) 50 mg DAILY ORAL 05/23/18 09:00 06/22/18 08:59 Morphine Sulfate (Morphine Sulfate) 2 mg Q4H PRN IVP Severe Pain (Pain Scale 7-10) 05/22/18 20:15 05/29/18 20:14 05/23/18 08:44 Nitroglycerin (Ntg) 0.4 mg Q5MIN X 3 DOSES PRN SL Prn Chest Pain 05/22/18 20:30 06/21/18 20:29 Norepinephrine Bitartrate 4 mg/ Dextrose 250 ml @ 0 mls/hr Q24H IV 05/23/18 06:45 06/22/18 06:44 Ondansetron HCl (Zofran) 4 mg Q6H PRN IVP Nausea & Vomiting 05/22/18 23:01 06/21/18 23:00 05/23/18 08:15 Sodium Chloride 1,000 ml @ 50 mls/hr Q20H IV 05/22/18 23:00 06/21/18 22:59 05/22/18 23:11 Temazepam (Restoril) 15 mg HSPRN PRN ORAL Insomnia 05/22/18 21:00 05/29/18 20:59 Vancomycin HCl (Vanco rx to dose) 1 ea DAILY PRN MISC . 05/22/18 20:45 06/21/18 20:44 Assessment/Plan Problem List: (1) Septic shock ICD Codes: A41.9 - Sepsis, unspecified organism; R65.21 - Severe sepsis with septic shock SNOMED: 44548544 (2) Nausea vomiting and diarrhea ICD Codes: R11.2 - Nausea with vomiting, unspecified; R19.7 - Diarrhea, unspecified SNOMED: 3911107 (3) Pericardial effusion ICD Codes: I31.3 - Pericardial effusion (noninflammatory) SNOMED: 738461165 (4) ESRD (end stage renal disease) on dialysis ICD Codes: N18.6 - End stage renal disease; Z99.2 - Dependence on renal dialysis SNOMED: 081260490 (5) Type 1 diabetes mellitus ICD Codes: E10.9 - Type 1 diabetes mellitus without complications SNOMED: 80784204 Assessment/Plan broad spectrum abx vargas cultures titrate dopamin drip ID evaluation symptomatic treatment antiemetic analgesics Juan Moses MD May 23, 2018 09:37
--- NOTE | 2018-05-23 10:42 | Consultation ---
History of Present Illness General Chief Complaint: General Complaint Reason for Consultation: Diarrhea Present Illness HPI Mr. Muniz is a 37 yo male with PMHx of DM, and ESRD on PD who presneted to the ED on 05/22/18 with 2 days of Diarrhea. He reports associated N/V and weakness. No blood in the watery diarrhea. He reports no fever, chill,sore throat, sick contacts. In the ED he was aferbile. He has no lukocytosis. MRI showed pericardial effusion and pleural effusion. He was transferred to the ICU last night for hypotension. Today he has diffuse abdominal pain. This has been getting worse. He reports having diarrhea about 2 week ago that resolved. He reports no problems with his PD sessions or lines. Last PD was 2 nights ago. ID consulted for diarrhea PMHx/PSHx DM ESRD on PD HTN SocHx Active smoker No E/T/D FamHx Not contributory Allergies: Coded Allergies: CEFACLOR (Verified Allergy, Unknown, 08/09/17) PENICILLINS (Verified Allergy, Unknown, 08/09/17) Medication History Scheduled Amlodipine Besylate (Norvasc), 5 MG ORAL DAILY, (Reported) Calcium Acetate (Calcium Acetate), 667 MG PO TID, (Reported) Carvedilol* (Carvedilol*), 6.25 MG ORAL BID, (Reported) Hydralazine Hcl* (Hydralazine Hcl*), 25 MG ORAL BID, (Reported) Insulin Glargine (Lantus), 25 SUBQ BEDTIME, (Reported) Losartan Potassium* (Losartan Potassium*), 50 MG ORAL DAILY, (Reported) Miscellaneous Medications Insulin Glargine,Hum.rec.anlog (Toujeo Solostar), 300 UNIT SQ, (Reported) Insulin Lispro (Humalog), 0 SUBQ, (Reported) Discontinued Medications Bacitracin Zinc* (Bacitracin Zinc*), 1 APPLIC TOPIC THREE TIMES A DAY Discontinued Reason: Pt stopped taking med Levothyroxine Sodium* (Levothyroxine Sodium*), 75 MCG ORAL DAILY, (Reported) Discontinued Reason: Pt stopped taking med Losartan Potassium* (Losartan Potassium*), 50 MG ORAL DAILY, (Reported) Discontinued Reason: Prescription changed Patient History Healthcare decision maker hinself Resuscitation status Full Code Advanced Directive on File No Review of Systems ROS Narrative 12 point ROS negative except as note in the HPI. Physical Exam Last 24 Hour Vital Signs Date Time Temp Pulse Resp B/P (MAP) Pulse Ox O2 Delivery O2 Flow Rate FiO2 05/23/18 07:00 70/45 05/23/18 06:30 98 Nasal Cannula 4.0 36 05/23/18 06:30 Nasal Cannula 4.0 36 05/23/18 06:00 150 20 88/49 (62) 98 05/23/18 06:00 90/50 05/23/18 05:30 79 20 95/59 (71) 98 05/23/18 05:02 88/49 05/23/18 05:00 150 20 88/49 (62) 98 05/23/18 04:48 98 Nasal Cannula 4.0 36 05/23/18 04:47 Nasal Cannula 4.0 36 05/23/18 04:46 51 14 Room Air 36 05/23/18 04:30 97.1 52 20 88/49 (62) 98 05/23/18 04:00 Room Air 05/23/18 04:00 97.1 54 20 91/65 (74) 98 05/23/18 04:00 54 05/23/18 03:00 52 20 75/40 (52) 98 05/23/18 02:00 50 20 78/40 (53) 98 05/23/18 01:00 97.0 53 20 102/61 (75) 98 05/23/18 00:00 58 05/23/18 00:00 Room Air 05/23/18 00:00 97.4 48 20 71/35 (47) 98 05/23/18 00:00 Room Air 05/22/18 22:30 97.0 56 20 90/64 (73) 98 05/22/18 22:01 97.8 82 18 89/59 99 Room Air 94 05/22/18 18:22 97.8 82 18 86/42 99 Room Air 05/22/18 16:22 70 18 Room Air 94 05/22/18 16:22 97.7 70 18 96/64 94 Room Air 05/22/18 16:13 98 20 92/68 98 Room Air Intake and Output 05/22/18 05/23/18 19:00 07:00 Intake Total 1000 ml 314.3 ml Output Total 1 ml Balance 1000 ml 313.3 ml Intake Oral 0 ml 0 ml IV Total 1000 ml 314.3 ml Output Urine Total 0 ml Emesis 1 ml Laboratory Tests Test 05/22/18 16:45 05/23/18 04:30 White Blood Count 7.9 K/UL (4.8-10.8) 8.4 K/UL (4.8-10.8) Red Blood Count 3.32 M/UL (4.70-6.10) L 3.10 M/UL (4.70-6.10) L Hemoglobin 8.6 G/DL (14.2-18.0) L 8.2 G/DL (14.2-18.0) L Hematocrit 28.5 % (42.0-52.0) L 26.4 % (42.0-52.0) L Mean Corpuscular Volume 86 FL (80-99) 85 FL (80-99) Mean Corpuscular Hemoglobin 25.9 PG (27.0-31.0) L 26.3 PG (27.0-31.0) L Mean Corpuscular Hemoglobin Concent 30.3 G/DL (32.0-36.0) L 30.8 G/DL (32.0-36.0) L Red Cell Distribution Width 16.8 % (11.6-14.8) H 17.0 % (11.6-14.8) H Platelet Count 279 K/UL (150-450) 212 K/UL (150-450) Mean Platelet Volume 6.4 FL (6.5-10.1) L 7.2 FL (6.5-10.1) Neutrophils (%) (Auto) 71.5 % (45.0-75.0) 83.6 % (45.0-75.0) H Lymphocytes (%) (Auto) 10.2 % (20.0-45.0) L 4.4 % (20.0-45.0) L Monocytes (%) (Auto) 13.6 % (1.0-10.0) H 10.1 % (1.0-10.0) H Eosinophils (%) (Auto) 3.1 % (0.0-3.0) H 0.6 % (0.0-3.0) Basophils (%) (Auto) 1.6 % (0.0-2.0) 1.3 % (0.0-2.0) Sodium Level 133 MMOL/L (136-145) L 130 MMOL/L (136-145) L Potassium Level 4.0 MMOL/L (3.5-5.1) 4.5 MMOL/L (3.5-5.1) Chloride Level 94 MMOL/L (98-107) L 94 MMOL/L (98-107) L Carbon Dioxide Level 21 MMOL/L (21-32) 19 MMOL/L (21-32) L Anion Gap 18 mmol/L (5-15) H 18 mmol/L (5-15) H Blood Urea Nitrogen 98 mg/dL (7-18) H 98 mg/dL (7-18) H Creatinine 17.0 MG/DL (0.55-1.30) H 16.2 MG/DL (0.55-1.30) H Estimat Glomerular Filtration Rate 3.2 mL/min (>60) 3.3 mL/min (>60) Glucose Level 35 MG/DL (74-106) *L 207 MG/DL (74-106) #H Lactic Acid Level 1.50 mmol/L (0.4-2.0) Calcium Level 7.8 MG/DL (8.5-10.1) L 7.1 MG/DL (8.5-10.1) L Total Bilirubin 0.3 MG/DL (0.2-1.0) 0.3 MG/DL (0.2-1.0) Aspartate Amino Transf (AST/SGOT) 27 U/L (15-37) 26 U/L (15-37) Alanine Aminotransferase (ALT/SGPT) 41 U/L (12-78) 36 U/L (12-78) Alkaline Phosphatase 140 U/L (46-116) H 109 U/L (46-116) Troponin I 0.046 ng/mL (0.000-0.056) Total Protein 6.2 G/DL (6.4-8.2) L 5.3 G/DL (6.4-8.2) L Albumin 2.3 G/DL (3.4-5.0) L 1.9 G/DL (3.4-5.0) L Globulin 3.9 g/dL 3.4 g/dL Albumin/Globulin Ratio 0.6 (1.0-2.7) L 0.6 (1.0-2.7) L Prothrombin Time 12.0 SEC (9.30-11.50) H Prothromb Time International Ratio 1.1 (0.9-1.1) Activated Partial Thromboplast Time 30 SEC (23-33) Hemoglobin A1c 9.1 % (4.3-6.0) H Amylase Level 17 U/L (25-115) L Lipase 42 U/L (73-393) L Thyroid Stimulating Hormone (TSH) 14.016 uiU/mL (0.358-3.740) Height (Feet): 5 Height (Inches): 9.00 Weight (Pounds): 169 Medications Current Medications Medications (Trade) Dose Ordered Sig/Reginaldo Route PRN Reason Start Time Stop Time Status Last Admin Dose Admin Acetaminophen (Tylenol) 650 mg Q4H PRN ORAL T>100.5 05/22/18 20:15 06/21/18 20:14 Chlorhexidine Gluconate (Janna-Hex 2%) 1 applic DAILY@1999 TOPIC 05/23/18 20:00 06/22/18 19:59 Gadobutrol (Gadavist) 7.5 mmol NOW PRN IV Radiology Procedure 05/22/18 18:15 05/26/18 18:03 Heparin Sodium (Porcine) (Heparin 5000 units/ml) 5,000 units EVERY 12 HOURS SUBQ 05/22/18 21:00 06/21/18 20:59 05/23/18 08:58 Hydralazine HCl (Apresoline) 25 mg BID ORAL 05/23/18 09:00 06/22/18 08:59 Insulin Aspart (NovoLOG) BEFORE MEALS AND HS SUBQ 05/23/18 06:30 06/22/18 06:29 05/23/18 06:27 Lidocaine HCl (Xylocaine 1% 30ml) 30 ml ONCE PRN INJ picc line placement 05/23/18 06:30 05/24/18 06:29 Morphine Sulfate (Morphine Sulfate) 2 mg Q4H PRN IVP Severe Pain (Pain Scale 7-10) 05/22/18 20:15 05/29/18 20:14 05/23/18 08:44 Nitroglycerin (Ntg) 0.4 mg Q5MIN X 3 DOSES PRN SL Prn Chest Pain 05/22/18 20:30 06/21/18 20:29 Norepinephrine Bitartrate 4 mg/ Dextrose 250 ml @ 0 mls/hr Q24H IV 05/23/18 06:45 06/22/18 06:44 Ondansetron HCl (Zofran) 4 mg Q6H PRN IVP Nausea & Vomiting 05/22/18 23:01 06/21/18 23:00 05/23/18 08:15 Sodium Chloride 1,000 ml @ 50 mls/hr Q20H IV 05/22/18 23:00 06/21/18 22:59 05/22/18 23:11 Temazepam (Restoril) 15 mg HSPRN PRN ORAL Insomnia 05/22/18 21:00 05/29/18 20:59 Vancomycin HCl (Vanco rx to dose) 1 ea DAILY PRN MISC . 05/22/18 20:45 06/21/18 20:44 Objective Narrative Gen: SOB On Ventimask. HEENT: NCAT, MMM, EOMI, PERRL, No Oral lesion, no scleral icterus NECK: full range of motion, supple, no meningismus, No LAD, No JVD LUNGS: CTAB, No W/C, No Accessory muscle use CARDS: RRR, S1, S2, No M/R/G, ABD: Soft, Distended and diffusely ttp, PD cath LLQ no surrounding erythema or drainage. : Deferred Ext: C/C/E, Pulses 2+ B/L (DP, Rad): NEURO: A/O x 4, Strength and Sensation Grossly intact PSYCH: Mood/affect normal SKIN: Warm/dry, No rashes Assessment/Plan Assessment/Plan 37 yo male with PMHx of DM, and ESRD on PD who presented to the ED on 05/22/18 with 2 days of Diarrhea. Probable PD cath infection / peritonitis Start Abx Discussed with nurse and patient. Unable to get PD care here. Needs transfer as we cant access the PD cath here. MRI 05/21/18 - Moderate to large pericardial effusion. Hepatomegaly. Bilateral pleural effusions. Trace ascites. Thickening of the gallbladder wall, nonspecific. Diarrhea/N/V Peritonitis vs Viral gastritis Would check for C. diff No Leukocytosis No fever Pericardial effusion Unclear source if infectious in etiology most likely 2/2 fluid overload and vs viral gastritis Need cardiology evaluation and likely intervention DM ESRD on PD No signs to suggest SBP at this time HTN PLAN - Start Vancomycin and Cefepime 2g Q48hr - Monitor CBC and temps - Supportive care - Cardiology consult - f/u C. diff - Transfer for HLOC Thank you for this consult. We will continue to follow the patient during this hospitalization. Tree Pepe MD May 23, 2018 10:42
--- NOTE | 2018-05-23 11:25 | Consultation ---
History of Present Illness General Date patient seen: May 23, 2018 Chief Complaint: General Complaint Reason for Consultation: abdominal pain Present Illness HPI 37 year old male with history of renal insufficiency on peritoneal dialysis admitted and in ICU for care and management. Patient with diarrhea for 2 days, n/v, abdominal pain, and fatigue. In ED noted to be hypotensive. on Exam with LUQ tenderness. Surgery called to evaluate. patient seen, chart reviewed, patient examined. overnight intermittent hypotension on low dose pressors. currently states still feels weak and tired. still with LUQ discomfort. pain dull cramping 09/22 without radiation Allergies: Coded Allergies: CEFACLOR (Verified Allergy, Unknown, 08/09/17) PENICILLINS (Verified Allergy, Unknown, 08/09/17) Medication History Scheduled Amlodipine Besylate (Norvasc), 5 MG ORAL DAILY, (Reported) Calcium Acetate (Calcium Acetate), 667 MG PO TID, (Reported) Carvedilol* (Carvedilol*), 6.25 MG ORAL BID, (Reported) Hydralazine Hcl* (Hydralazine Hcl*), 25 MG ORAL BID, (Reported) Insulin Glargine (Lantus), 25 SUBQ BEDTIME, (Reported) Losartan Potassium* (Losartan Potassium*), 50 MG ORAL DAILY, (Reported) Miscellaneous Medications Insulin Glargine,Hum.rec.anlog (Tokylah Parada), 300 UNIT SQ, (Reported) Insulin Lispro (Humalog), 0 SUBQ, (Reported) Discontinued Medications Bacitracin Zinc* (Bacitracin Zinc*), 1 APPLIC TOPIC THREE TIMES A DAY Discontinued Reason: Pt stopped taking med Levothyroxine Sodium* (Levothyroxine Sodium*), 75 MCG ORAL DAILY, (Reported) Discontinued Reason: Pt stopped taking med Losartan Potassium* (Losartan Potassium*), 50 MG ORAL DAILY, (Reported) Discontinued Reason: Prescription changed Patient History Limited by: medical condition History Provided By: Patient, Medical Record, PMD Healthcare decision maker hinself Resuscitation status Full Code Advanced Directive on File No Past Medical/Surgical History Past Medical/Surgical History: (1) Renal insufficiency (2) Vomiting (3) ESRD (end stage renal disease) (4) Skin avulsion (5) Dehydration (6) Pericardial effusion (7) ESRD (end stage renal disease) on dialysis (8) Hypoglycemia (9) Hypotension (10) Type 1 diabetes mellitus (11) Septic shock (12) Nausea vomiting and diarrhea Review of Systems All Other Systems: negative except mentioned in HPI Physical Exam General Appearance: mild distress Lines, tubes and drains: peripheral HEENT: mucous membranes moist Neck: normal inspection Respiratory/Chest: no respiratory distress Cardiovascular/Chest: regular rhythm Abdomen: soft, no organomegaly, no mass, hyperactive bowel sounds, tender, other Extremities: normal inspection Skin Exam: warm/dry Neurologic: alert, responsive Last 24 Hour Vital Signs Date Time Temp Pulse Resp B/P (MAP) Pulse Ox O2 Delivery O2 Flow Rate FiO2 05/23/18 07:00 70/45 05/23/18 06:30 98 Nasal Cannula 4.0 36 05/23/18 06:30 Nasal Cannula 4.0 36 05/23/18 06:00 150 20 88/49 (62) 98 05/23/18 06:00 90/50 05/23/18 05:30 79 20 95/59 (71) 98 05/23/18 05:02 88/49 05/23/18 05:00 150 20 88/49 (62) 98 05/23/18 04:48 98 Nasal Cannula 4.0 36 05/23/18 04:47 Nasal Cannula 4.0 36 05/23/18 04:46 51 14 Room Air 36 05/23/18 04:30 97.1 52 20 88/49 (62) 98 05/23/18 04:00 Room Air 05/23/18 04:00 97.1 54 20 91/65 (74) 98 05/23/18 04:00 54 05/23/18 03:00 52 20 75/40 (52) 98 05/23/18 02:00 50 20 78/40 (53) 98 05/23/18 01:00 97.0 53 20 102/61 (75) 98 05/23/18 00:00 58 05/23/18 00:00 Room Air 05/23/18 00:00 97.4 48 20 71/35 (47) 98 05/23/18 00:00 Room Air 05/22/18 22:30 97.0 56 20 90/64 (73) 98 05/22/18 22:01 97.8 82 18 89/59 99 Room Air 94 05/22/18 18:22 97.8 82 18 86/42 99 Room Air 05/22/18 16:22 70 18 Room Air 94 05/22/18 16:22 97.7 70 18 96/64 94 Room Air 05/22/18 16:13 98 20 92/68 98 Room Air Intake and Output 05/22/18 05/23/18 19:00 07:00 Intake Total 1000 ml 314.3 ml Output Total 1 ml Balance 1000 ml 313.3 ml Intake Oral 0 ml 0 ml IV Total 1000 ml 314.3 ml Output Urine Total 0 ml Emesis 1 ml Laboratory Tests Test 05/22/18 16:45 05/23/18 04:30 White Blood Count 7.9 K/UL (4.8-10.8) 8.4 K/UL (4.8-10.8) Red Blood Count 3.32 M/UL (4.70-6.10) L 3.10 M/UL (4.70-6.10) L Hemoglobin 8.6 G/DL (14.2-18.0) L 8.2 G/DL (14.2-18.0) L Hematocrit 28.5 % (42.0-52.0) L 26.4 % (42.0-52.0) L Mean Corpuscular Volume 86 FL (80-99) 85 FL (80-99) Mean Corpuscular Hemoglobin 25.9 PG (27.0-31.0) L 26.3 PG (27.0-31.0) L Mean Corpuscular Hemoglobin Concent 30.3 G/DL (32.0-36.0) L 30.8 G/DL (32.0-36.0) L Red Cell Distribution Width 16.8 % (11.6-14.8) H 17.0 % (11.6-14.8) H Platelet Count 279 K/UL (150-450) 212 K/UL (150-450) Mean Platelet Volume 6.4 FL (6.5-10.1) L 7.2 FL (6.5-10.1) Neutrophils (%) (Auto) 71.5 % (45.0-75.0) 83.6 % (45.0-75.0) H Lymphocytes (%) (Auto) 10.2 % (20.0-45.0) L 4.4 % (20.0-45.0) L Monocytes (%) (Auto) 13.6 % (1.0-10.0) H 10.1 % (1.0-10.0) H Eosinophils (%) (Auto) 3.1 % (0.0-3.0) H 0.6 % (0.0-3.0) Basophils (%) (Auto) 1.6 % (0.0-2.0) 1.3 % (0.0-2.0) Sodium Level 133 MMOL/L (136-145) L 130 MMOL/L (136-145) L Potassium Level 4.0 MMOL/L (3.5-5.1) 4.5 MMOL/L (3.5-5.1) Chloride Level 94 MMOL/L (98-107) L 94 MMOL/L (98-107) L Carbon Dioxide Level 21 MMOL/L (21-32) 19 MMOL/L (21-32) L Anion Gap 18 mmol/L (5-15) H 18 mmol/L (5-15) H Blood Urea Nitrogen 98 mg/dL (7-18) H 98 mg/dL (7-18) H Creatinine 17.0 MG/DL (0.55-1.30) H 16.2 MG/DL (0.55-1.30) H Estimat Glomerular Filtration Rate 3.2 mL/min (>60) 3.3 mL/min (>60) Glucose Level 35 MG/DL (74-106) *L 207 MG/DL (74-106) #H Lactic Acid Level 1.50 mmol/L (0.4-2.0) Calcium Level 7.8 MG/DL (8.5-10.1) L 7.1 MG/DL (8.5-10.1) L Total Bilirubin 0.3 MG/DL (0.2-1.0) 0.3 MG/DL (0.2-1.0) Aspartate Amino Transf (AST/SGOT) 27 U/L (15-37) 26 U/L (15-37) Alanine Aminotransferase (ALT/SGPT) 41 U/L (12-78) 36 U/L (12-78) Alkaline Phosphatase 140 U/L (46-116) H 109 U/L (46-116) Troponin I 0.046 ng/mL (0.000-0.056) Total Protein 6.2 G/DL (6.4-8.2) L 5.3 G/DL (6.4-8.2) L Albumin 2.3 G/DL (3.4-5.0) L 1.9 G/DL (3.4-5.0) L Globulin 3.9 g/dL 3.4 g/dL Albumin/Globulin Ratio 0.6 (1.0-2.7) L 0.6 (1.0-2.7) L Prothrombin Time 12.0 SEC (9.30-11.50) H Prothromb Time International Ratio 1.1 (0.9-1.1) Activated Partial Thromboplast Time 30 SEC (23-33) Hemoglobin A1c 9.1 % (4.3-6.0) H Amylase Level 17 U/L (25-115) L Lipase 42 U/L (73-393) L Thyroid Stimulating Hormone (TSH) 14.016 uiU/mL (0.358-3.740) Height (Feet): 5 Height (Inches): 9.00 Weight (Pounds): 169 Medications Current Medications Medications (Trade) Dose Ordered Sig/Reginaldo Route PRN Reason Start Time Stop Time Status Last Admin Dose Admin Acetaminophen (Tylenol) 650 mg Q4H PRN ORAL T>100.5 05/22/18 20:15 06/21/18 20:14 Chlorhexidine Gluconate (Janna-Hex 2%) 1 applic DAILY@2000 TOPIC 05/23/18 20:00 06/22/18 19:59 Gadobutrol (Gadavist) 7.5 mmol NOW PRN IV Radiology Procedure 05/22/18 18:15 05/26/18 18:03 Heparin Sodium (Porcine) (Heparin 5000 units/ml) 5,000 units EVERY 12 HOURS SUBQ 05/22/18 21:00 06/21/18 20:59 05/23/18 08:58 Hydralazine HCl (Apresoline) 25 mg BID ORAL 05/23/18 09:00 06/22/18 08:59 Insulin Aspart (NovoLOG) BEFORE MEALS AND HS SUBQ 05/23/18 06:30 06/22/18 06:29 05/23/18 06:27 Lidocaine HCl (Xylocaine 1% 30ml) 30 ml ONCE PRN INJ picc line placement 05/23/18 06:30 05/24/18 06:29 Morphine Sulfate (Morphine Sulfate) 2 mg Q4H PRN IVP Severe Pain (Pain Scale 7-10) 05/22/18 20:15 05/29/18 20:14 05/23/18 08:44 Nitroglycerin (Ntg) 0.4 mg Q5MIN X 3 DOSES PRN SL Prn Chest Pain 05/22/18 20:30 06/21/18 20:29 Norepinephrine Bitartrate 4 mg/ Dextrose 250 ml @ 0 mls/hr Q24H IV 05/23/18 06:45 06/22/18 06:44 Ondansetron HCl (Zofran) 4 mg Q6H PRN IVP Nausea & Vomiting 05/22/18 23:01 06/21/18 23:00 05/23/18 08:15 Sodium Chloride 1,000 ml @ 50 mls/hr Q20H IV 05/22/18 23:00 06/21/18 22:59 05/22/18 23:11 Temazepam (Restoril) 15 mg HSPRN PRN ORAL Insomnia 05/22/18 21:00 05/29/18 20:59 Vancomycin HCl (Vanco rx to dose) 1 ea DAILY PRN MISC . 05/22/18 20:45 06/21/18 20:44 Assessment/Plan Problem List: (1) Abdominal pain Assessment & Plan: vague cramping LUQ abdominal pain Hx of peritoneal dialysis with catheter in place MRI noted. CT scanner was unavailable n/v diarrhea. could be possible enteritis/colitis given n/v/diarrhea and discomfort could be peritonitis related to PD cath no acute surgical intervention planned npo iv fluids iv ABX CT scan A/P when possible. thank you will follow with recs ICD Codes: R10.9 - Unspecified abdominal pain SNOMED: [id number] Qualifiers: Qualified Codes: R10.32 - Left lower quadrant pain (2) Septic shock Assessment & Plan: currently 2x good peripheral IV lines in place Hold on HD cath if being transferred to [facility] where he can have PD if not will need temp HD line for HD here hold on central venous access if needs pressors will need to place central venous access. thank you ICD Codes: A41.9 - Sepsis, unspecified organism; R65.21 - Severe sepsis with septic shock SNOMED: [id number] Andres Albert May 23, 2018 11:25
[2018-05-23] MEDS ORDERED: Gentamicin Rx monitoring MISC PRN (11:45)
--- NOTE | 2018-05-23 11:45 | Diagnostic Imaging Report ---
Indication:Abdominal pain Technique: Grayscale and duplex Doppler imaging of the abdomen performed. Comparison: None Findings: There is mild ascites present. There is thickening of the gallbladder wall. No definite gallstones are identified. No biliary ductal dilatation is identified. CBD is 4 mm. Demonstrated part of the pancreas and aorta appear unremarkable. The kidneys are echogenic. Borderline splenomegaly noted. Impression: Mild ascites. Borderline splenomegaly. Medical renal disease
[2018-05-23] MEDS ORDERED: Metoclopramide 10mg/2ml Inj IVP PRN (12:00)
[2018-05-23] MEDS ORDERED: GENTAMICIN IVPB SCH (14:00)
[2018-05-23] MEDS ORDERED: NS IVPB SCH (14:00)
--- NOTE | 2018-05-23 14:31 | Cardiology Report ---
APPROVED REPORT EXAM: Two-dimensional and M-mode echocardiogram with Doppler and color Doppler. INDICATION Bradycardia M-Mode DIMENSIONS IVSd2.2 (0.7-1.1cm)Left Atrium (MM)3.6 (1.6-4.0cm) LVDd4.0 (3.5-5.6cm)Aortic Root2.8 (2.0-3.7cm) PWd2.2 (0.7-1.1cm)Aortic Cusp Exc.2.3 (1.5-2.0cm) LVDs1.7 (2.5-4.0cm) PWs3.1 cm Normal left ventricular chamber size, systolic function and wall motion. Left ventricular ejection fraction estimated to be 55 %. Severe left ventricular hypertrophy. Moderate to severe circumferential pericardial effusion. All other cardiac chamber sizes are within normal limits. Focal aortic valve sclerosis with adequate cusp excursion. Mildly thickened mitral valve leaflets with normal excursion. Mild mitral annulus and aortic root calcification. Normal pulmonic valve structure. Normal tricuspid valve structure. IVC dilated at 2.8 cm without physiological collapse, estimated RAP is 20 mmHg. Right ventricular and right atrial early diastolic collapse, c/w early cardiac tamponade. A color flow and spectral Doppler study was performed and revealed: No aortic insufficiency. No mitral regurgitation. Mitral inflow velocities indicates possible pseudo normalization pattern implying significant left ventricular diastolic dysfunction (Grade II). Trace tricuspid regurgitation. Tricuspid systolic velocities suggests peak right ventricular systolic pressure of 26 mmHg. No pulmonic regurgitation present. Notified social media analyst Berlin Spears M.D., by Frida Dawn on 05/23/2018 at 0930.
--- NOTE | 2018-05-23 14:43 | Cardiology Progress Note ---
Assessment/Plan Assessment/Plan large pericardial effusion new since 12/2017 early tamponade physiology esrd on pd recent diarrhea htn hx [facility] record reviwed effusio not present 12/2017 doubt uremin likey otehr etiologies viral likely ekg min st elelvated no rub on exam as effusion is large [facility] and possible periocardiocentesis [id number] Objective Last 24 Hour Vital Signs Date Time Temp Pulse Resp B/P (MAP) Pulse Ox O2 Delivery O2 Flow Rate FiO2 05/23/18 14:00 62 15 116/15 (48) 100 05/23/18 13:00 62 10 112/68 (83) 99 05/23/18 12:00 Non-Rebreather 15.0 05/23/18 12:00 63 05/23/18 12:00 97.9 63 11 99/67 (78) 97 05/23/18 11:00 59 10 98/60 (73) 94 05/23/18 10:00 59 11 83/57 (66) 89 05/23/18 09:00 61 11 88/41 (57) 100 05/23/18 08:00 97.6 65 15 87/57 (67) 95 05/23/18 08:00 65 05/23/18 08:00 Room Air 2.0 05/23/18 07:00 70/45 05/23/18 06:30 98 Nasal Cannula 4.0 36 05/23/18 06:30 Nasal Cannula 4.0 36 05/23/18 06:00 150 20 88/49 (62) 98 05/23/18 06:00 90/50 05/23/18 05:30 79 20 95/59 (71) 98 05/23/18 05:02 88/49 05/23/18 05:00 150 20 88/49 (62) 98 05/23/18 04:48 98 Nasal Cannula 4.0 36 05/23/18 04:47 Nasal Cannula 4.0 36 05/23/18 04:46 51 14 Room Air 36 05/23/18 04:30 97.1 52 20 88/49 (62) 98 05/23/18 04:00 Room Air 05/23/18 04:00 97.1 54 20 91/65 (74) 98 05/23/18 04:00 54 05/23/18 03:00 52 20 75/40 (52) 98 05/23/18 02:00 50 20 78/40 (53) 98 05/23/18 01:00 97.0 53 20 102/61 (75) 98 05/23/18 00:00 58 05/23/18 00:00 Room Air 05/23/18 00:00 97.4 48 20 71/35 (47) 98 05/23/18 00:00 Room Air 05/22/18 22:30 97.0 56 20 90/64 (73) 98 05/22/18 22:01 97.8 82 18 89/59 99 Room Air 94 05/22/18 18:22 97.8 82 18 86/42 99 Room Air 05/22/18 16:22 70 18 Room Air 94 05/22/18 16:22 97.7 70 18 96/64 94 Room Air 05/22/18 16:13 98 20 92/68 98 Room Air Intake and Output 05/22/18 05/23/18 19:00 07:00 Intake Total 1000 ml 314.3 ml Output Total 1 ml Balance 1000 ml 313.3 ml Intake Oral 0 ml 0 ml IV Total 1000 ml 314.3 ml Output Urine Total 0 ml Emesis 1 ml Laboratory Tests Test 05/22/18 16:45 05/23/18 04:30 White Blood Count 7.9 K/UL (4.8-10.8) 8.4 K/UL (4.8-10.8) Red Blood Count 3.32 M/UL (4.70-6.10) L 3.10 M/UL (4.70-6.10) L Hemoglobin 8.6 G/DL (14.2-18.0) L 8.2 G/DL (14.2-18.0) L Hematocrit 28.5 % (42.0-52.0) L 26.4 % (42.0-52.0) L Mean Corpuscular Volume 86 FL (80-99) 85 FL (80-99) Mean Corpuscular Hemoglobin 25.9 PG (27.0-31.0) L 26.3 PG (27.0-31.0) L Mean Corpuscular Hemoglobin Concent 30.3 G/DL (32.0-36.0) L 30.8 G/DL (32.0-36.0) L Red Cell Distribution Width 16.8 % (11.6-14.8) H 17.0 % (11.6-14.8) H Platelet Count 279 K/UL (150-450) 212 K/UL (150-450) Mean Platelet Volume 6.4 FL (6.5-10.1) L 7.2 FL (6.5-10.1) Neutrophils (%) (Auto) 71.5 % (45.0-75.0) 83.6 % (45.0-75.0) H Lymphocytes (%) (Auto) 10.2 % (20.0-45.0) L 4.4 % (20.0-45.0) L Monocytes (%) (Auto) 13.6 % (1.0-10.0) H 10.1 % (1.0-10.0) H Eosinophils (%) (Auto) 3.1 % (0.0-3.0) H 0.6 % (0.0-3.0) Basophils (%) (Auto) 1.6 % (0.0-2.0) 1.3 % (0.0-2.0) Sodium Level 133 MMOL/L (136-145) L 130 MMOL/L (136-145) L Potassium Level 4.0 MMOL/L (3.5-5.1) 4.5 MMOL/L (3.5-5.1) Chloride Level 94 MMOL/L (98-107) L 94 MMOL/L (98-107) L Carbon Dioxide Level 21 MMOL/L (21-32) 19 MMOL/L (21-32) L Anion Gap 18 mmol/L (5-15) H 18 mmol/L (5-15) H Blood Urea Nitrogen 98 mg/dL (7-18) H 98 mg/dL (7-18) H Creatinine 17.0 MG/DL (0.55-1.30) H 16.2 MG/DL (0.55-1.30) H Estimat Glomerular Filtration Rate 3.2 mL/min (>60) 3.3 mL/min (>60) Glucose Level 35 MG/DL (74-106) *L 207 MG/DL (74-106) #H Lactic Acid Level 1.50 mmol/L (0.4-2.0) Calcium Level 7.8 MG/DL (8.5-10.1) L 7.1 MG/DL (8.5-10.1) L Total Bilirubin 0.3 MG/DL (0.2-1.0) 0.3 MG/DL (0.2-1.0) Aspartate Amino Transf (AST/SGOT) 27 U/L (15-37) 26 U/L (15-37) Alanine Aminotransferase (ALT/SGPT) 41 U/L (12-78) 36 U/L (12-78) Alkaline Phosphatase 140 U/L (46-116) H 109 U/L (46-116) Troponin I 0.046 ng/mL (0.000-0.056) Total Protein 6.2 G/DL (6.4-8.2) L 5.3 G/DL (6.4-8.2) L Albumin 2.3 G/DL (3.4-5.0) L 1.9 G/DL (3.4-5.0) L Globulin 3.9 g/dL 3.4 g/dL Albumin/Globulin Ratio 0.6 (1.0-2.7) L 0.6 (1.0-2.7) L Prothrombin Time 12.0 SEC (9.30-11.50) H Prothromb Time International Ratio 1.1 (0.9-1.1) Activated Partial Thromboplast Time 30 SEC (23-33) Hemoglobin A1c 9.1 % (4.3-6.0) H Amylase Level 17 U/L (25-115) L Lipase 42 U/L (73-393) L Thyroid Stimulating Hormone (TSH) 14.016 uiU/mL (0.358-3.740) Berlin Spears MD May 23, 2018 14:43
--- NOTE | 2018-05-23 15:26 | Discharge Summary ---
Discharge Summary Hospital Course Date of Admission May 22, 2018 at 17:24 Date of Discharge Admitting Diagnosis -diarrhea/hypotension HPI Rey Muniz is a 37 year old male who was admitted on May 22, 2018 at 17 :24 for Diarrhea,Hypotension Hospital Course Last 24 Hour Vital Signs Date Time Temp Pulse Resp B/P (MAP) Pulse Ox O2 Delivery O2 Flow Rate FiO2 05/23/18 14:00 62 15 116/15 (48) 100 05/23/18 13:00 62 10 112/68 (83) 99 05/23/18 12:00 Non-Rebreather 15.0 05/23/18 12:00 63 05/23/18 12:00 97.9 63 11 99/67 (78) 97 05/23/18 11:00 59 10 98/60 (73) 94 05/23/18 10:00 59 11 83/57 (66) 89 05/23/18 09:00 61 11 88/41 (57) 100 05/23/18 08:00 97.6 65 15 87/57 (67) 95 05/23/18 08:00 65 05/23/18 08:00 Room Air 2.0 05/23/18 07:00 70/45 05/23/18 06:30 98 Nasal Cannula 4.0 36 05/23/18 06:30 Nasal Cannula 4.0 36 05/23/18 06:00 150 20 88/49 (62) 98 05/23/18 06:00 90/50 05/23/18 05:30 79 20 95/59 (71) 98 05/23/18 05:02 88/49 05/23/18 05:00 150 20 88/49 (62) 98 05/23/18 04:48 98 Nasal Cannula 4.0 36 05/23/18 04:47 Nasal Cannula 4.0 36 05/23/18 04:46 51 14 Room Air 36 05/23/18 04:30 97.1 52 20 88/49 (62) 98 05/23/18 04:00 Room Air 05/23/18 04:00 97.1 54 20 91/65 (74) 98 05/23/18 04:00 54 05/23/18 03:00 52 20 75/40 (52) 98 05/23/18 02:00 50 20 78/40 (53) 98 05/23/18 01:00 97.0 53 20 102/61 (75) 98 05/23/18 00:00 58 05/23/18 00:00 Room Air 05/23/18 00:00 97.4 48 20 71/35 (47) 98 05/23/18 00:00 Room Air 05/22/18 22:30 97.0 56 20 90/64 (73) 98 05/22/18 22:01 97.8 82 18 89/59 99 Room Air 94 05/22/18 18:22 97.8 82 18 86/42 99 Room Air 05/22/18 16:22 70 18 Room Air 94 05/22/18 16:22 97.7 70 18 96/64 94 Room Air 05/22/18 16:13 98 20 92/68 98 Room Air Discharge Discharge Disposition Patient was discharged to Rikki Gomes MD May 23, 2018 15:26
--- NOTE | 2018-05-23 16:00 | Discharge Summary ---
DATE OF ADMISSION: 05/22/2018 DATE OF DISCHARGE: 05/23/2018 HOSPITAL COURSE: This is a 37-year-old very delightful gentleman with past medical history significant for diabetic type 1 on insulin, history of Charcot joint, as well as polyneuropathy of lower extremity, history of hypertension, end-stage renal disease on peritoneal dialysis, and hypothyroidism, who was presented to the hospital from home after he was complaining about abdominal pain associated with nausea and vomiting. Shortly after initial evaluation, the patient was noted to be hypotensive. MRI of the abdomen was done in the ER, which indicated the patient had moderate to severe pericardial effusion and hepatomegaly. Shortly after initial evaluation, the patient was admitted to the [facility] with abdominal pain, nausea and vomiting, possible due to peritonitis as well as moderate to severe pericardial effusion, possible tamponade. Throughout the hospital course, the patient was consulted with Dr. Berlin Spears from Cardiology, Dr. Moses from Pulmonary Critical Care, Dr. Albert from General Surgery, Dr. Venkata Loving from Endocrinology, Dr. Tree Pepe from ID. The patient was started on broad-spectrum antibiotics with gentamicin, vancomycin as well as Flagyl. His abdominal pain improved; however, overnight he has been extremely hypotensive. The patient was subsequently transferred to the ICU and started on the pressor, initiated on dopamine and then switched to Levophed. After further discussion with the transfer center at [facility], the patient will transfer to [facility] for continued care and possible pericardiocentesis. FINAL DIAGNOSES: 1. Moderate to severe pericardial effusion, possible pericardial tamponade. 2. End-stage renal disease, on peritoneal dialysis. 3. Abdominal pain, nausea, vomiting, most likely secondary to peritonitis. 4. Diabetes type 1 with diabetic polyneuropathy. 5. Anemia of chronic disease. 6. Charcot joint. 7. Hypertension, presently hypotensive. 8. Hypothyroidism. 9. Uremia. PLAN: At this time, the patient will be transferred to [facility] via ambulance. Discussed with the transfer center. CODE STATUS: Full code. We will continue care at [facility]. Rikki Eliseo, M.D. DR: Boyd JOB#: [id number] CC: ROBERT
--- NOTE | 2018-05-23 16:38 | GI Initial Consult Note ---
History of Present Illness General Date patient seen: May 23, 2018 Time patient seen: 12:00 Reason for Hospitalization: General Complaint Referring physician: COOKIE COLLIER Reason for Consultation: abdominal pain Present Illness HPI 37-year-old male with history of diabetes, also end-stage renal disease on peritoneal dialysis daily, presenting with 2 days of diarrhea, generalized weakness, nausea and vomiting. Says that he had more than 5 episodes of watery nonbloody diarrhea. Also a few episodes of nonbilious nonbloody vomiting. Has no history of any abdominal surgeries. Says that he checked his blood pressure and it was a systolic 84 and is normal is actually high because he has high blood pressure. No recent antibiotic use or recent trauma. Denies any fever chills. Denies any current chest pain shortness of breath or abdominal pain GI consulted for reports of persistent abdominal pain associated with diarrhea, nausea and vomiting. Initial HPI as noted as above. Patient was seen, stating that his abdominal pain has improved. MRI of the abdomen was performed in the emergency room in which he indicated that the patient had moderate to severe pericardial effusion with possible cardiac tamponade. The patient is currently in process to be transferred to [facility] for possible pericardiocentesis. No known history of endoscopic colonoscopy. Home Meds Reported Medications Losartan Potassium* (LOSARTAN POTASSIUM*) 50 Mg Tablet, 50 MG ORAL DAILY, TAB 05/22/18 Insulin Glargine,Hum.rec.anlog (Ayo Parada) 300 Unit/1 Ml Insuln.pen, 300 UNIT SQ, EA 05/22/18 Amlodipine Besylate (Norvasc) 5 Mg Tablet, 5 MG ORAL DAILY, TAB 05/22/18 Carvedilol* (CARVEDILOL*) 6.25 Mg Tablet, 6.25 MG ORAL BID, TAB 05/22/18 Hydralazine Hcl* (HYDRALAZINE HCL*) 25 Mg Tablet, 25 MG ORAL BID, TAB 0 Refills 05/22/18 Calcium Acetate (CALCIUM ACETATE) 667 Mg Tablet, 667 MG PO TID, TAB 05/22/18 Insulin Glargine (LANTUS) 100 Unit/1 Ml Insuln.pen, 25 SUBQ BEDTIME, #1 EA 0 Refills 07/22/15 Insulin Lispro (HUMALOG) 100 Unit/1 Ml Vial, 0 SUBQ, #1 UNITS 0 Refills 07/22/15 Discontinued Reported Medications Levothyroxine Sodium* (LEVOTHYROXINE SODIUM*) 75 Mcg Tablet, 75 MCG ORAL DAILY, TAB Take in the morning on an empty stomach, at least 30 minutes before food. 07/22/15 Losartan Potassium* (LOSARTAN POTASSIUM*) 25 Mg Tablet, 50 MG ORAL DAILY, TAB 07/22/15 Discontinued Scripts Bacitracin Zinc* (BACITRACIN ZINC*) 1 Each Packet, 1 APPLIC TOPIC THREE TIMES A DAY, #30 PACKET Prov:Mario Salguero MD 08/09/17 Med list reviewed/reconciled: Yes Allergies: Coded Allergies: CEFACLOR (Verified Allergy, Unknown, 08/09/17) PENICILLINS (Verified Allergy, Unknown, 08/09/17) Patient History PMH Narrative Past medical history significant for diabetic type 1 on insulin, history of Charcot joint, as well as polyneuropathy of lower extremity, history of hypertension, end-stage renal disease on peritoneal dialysis, and hypothyroidism. Social History: Denies: smoking, alcohol use, drug use, other Review of Systems All Other Systems: negative except mentioned in HPI Physical Exam Vital Signs Date Time Temp Pulse Resp B/P (MAP) Pulse Ox O2 Delivery O2 Flow Rate FiO2 05/22/18 16:13 98 20 92/68 98 Room Air 05/22/18 16:22 97.7 05/22/18 16:22 94 05/23/18 04:47 4.0 Sp02 EP Interpretation: reviewed, normal Labs Laboratory Tests Test 05/22/18 16:45 05/23/18 04:30 White Blood Count 7.9 K/UL (4.8-10.8) 8.4 K/UL (4.8-10.8) Red Blood Count 3.32 M/UL (4.70-6.10) L 3.10 M/UL (4.70-6.10) L Hemoglobin 8.6 G/DL (14.2-18.0) L 8.2 G/DL (14.2-18.0) L Hematocrit 28.5 % (42.0-52.0) L 26.4 % (42.0-52.0) L Mean Corpuscular Volume 86 FL (80-99) 85 FL (80-99) Mean Corpuscular Hemoglobin 25.9 PG (27.0-31.0) L 26.3 PG (27.0-31.0) L Mean Corpuscular Hemoglobin Concent 30.3 G/DL (32.0-36.0) L 30.8 G/DL (32.0-36.0) L Red Cell Distribution Width 16.8 % (11.6-14.8) H 17.0 % (11.6-14.8) H Platelet Count 279 K/UL (150-450) 212 K/UL (150-450) Mean Platelet Volume 6.4 FL (6.5-10.1) L 7.2 FL (6.5-10.1) Neutrophils (%) (Auto) 71.5 % (45.0-75.0) 83.6 % (45.0-75.0) H Lymphocytes (%) (Auto) 10.2 % (20.0-45.0) L 4.4 % (20.0-45.0) L Monocytes (%) (Auto) 13.6 % (1.0-10.0) H 10.1 % (1.0-10.0) H Eosinophils (%) (Auto) 3.1 % (0.0-3.0) H 0.6 % (0.0-3.0) Basophils (%) (Auto) 1.6 % (0.0-2.0) 1.3 % (0.0-2.0) Sodium Level 133 MMOL/L (136-145) L 130 MMOL/L (136-145) L Potassium Level 4.0 MMOL/L (3.5-5.1) 4.5 MMOL/L (3.5-5.1) Chloride Level 94 MMOL/L (98-107) L 94 MMOL/L (98-107) L Carbon Dioxide Level 21 MMOL/L (21-32) 19 MMOL/L (21-32) L Anion Gap 18 mmol/L (5-15) H 18 mmol/L (5-15) H Blood Urea Nitrogen 98 mg/dL (7-18) H 98 mg/dL (7-18) H Creatinine 17.0 MG/DL (0.55-1.30) H 16.2 MG/DL (0.55-1.30) H Estimat Glomerular Filtration Rate 3.2 mL/min (>60) 3.3 mL/min (>60) Glucose Level 35 MG/DL (74-106) *L 207 MG/DL (74-106) #H Lactic Acid Level 1.50 mmol/L (0.4-2.0) Calcium Level 7.8 MG/DL (8.5-10.1) L 7.1 MG/DL (8.5-10.1) L Total Bilirubin 0.3 MG/DL (0.2-1.0) 0.3 MG/DL (0.2-1.0) Aspartate Amino Transf (AST/SGOT) 27 U/L (15-37) 26 U/L (15-37) Alanine Aminotransferase (ALT/SGPT) 41 U/L (12-78) 36 U/L (12-78) Alkaline Phosphatase 140 U/L (46-116) H 109 U/L (46-116) Troponin I 0.046 ng/mL (0.000-0.056) Total Protein 6.2 G/DL (6.4-8.2) L 5.3 G/DL (6.4-8.2) L Albumin 2.3 G/DL (3.4-5.0) L 1.9 G/DL (3.4-5.0) L Globulin 3.9 g/dL 3.4 g/dL Albumin/Globulin Ratio 0.6 (1.0-2.7) L 0.6 (1.0-2.7) L Prothrombin Time 12.0 SEC (9.30-11.50) H Prothromb Time International Ratio 1.1 (0.9-1.1) Activated Partial Thromboplast Time 30 SEC (23-33) Hemoglobin A1c 9.1 % (4.3-6.0) H Amylase Level 17 U/L (25-115) L Lipase 42 U/L (73-393) L Thyroid Stimulating Hormone (TSH) 14.016 uiU/mL (0.358-3.740) General Appearance: well appearing, no apparent distress, alert Head: normocephalic EENT: PERRL/EOMI, normal ENT inspection Neck: supple Respiratory: normal breath sounds, no respiratory distress Cardiovascular: normal rate Gastrointestinal: normal inspection, non tender, soft, normal bowel sounds, non -distended Rectal: deferred Genitourinary: deferred Musculoskeletal: normal inspection, back normal Neurologic: normal inspection, alert, oriented x3, responsive Psychiatric: normal inspection, judgement/insight normal, memory normal Skin: normal inspection, normal color, no rash, warm/dry, palpation normal, well hydrated Lymphatic: normal inspection, no adenopathy Current Medications Current Medications Medications (Trade) Dose Ordered Sig/Reginaldo Route PRN Reason Start Time Stop Time Status Last Admin Dose Admin Acetaminophen (Tylenol) 650 mg Q4H PRN ORAL T>100.5 05/22/18 20:15 06/21/18 20:14 Chlorhexidine Gluconate (Janna-Hex 2%) 1 applic DAILY@2000 TOPIC 05/23/18 20:00 06/22/18 19:59 Gadobutrol (Gadavist) 7.5 mmol NOW PRN IV Radiology Procedure 05/22/18 18:15 05/26/18 18:03 Gentamicin Protocol (Gentamicin pharmacy to dose) 1 ea DAILY PRN MISC Per rx protocol 05/23/18 11:45 06/22/18 11:44 Heparin Sodium (Porcine) (Heparin 5000 units/ml) 5,000 units EVERY 12 HOURS SUBQ 05/22/18 21:00 06/21/18 20:59 05/23/18 08:58 Hydralazine HCl (Apresoline) 25 mg BID ORAL 05/23/18 09:00 06/22/18 08:59 Insulin Aspart (NovoLOG) BEFORE MEALS AND HS SUBQ 05/23/18 06:30 06/22/18 06:29 05/23/18 13:21 Lidocaine HCl (Xylocaine 1% 30ml) 30 ml ONCE PRN INJ picc line placement 05/23/18 06:30 05/24/18 06:29 Metoclopramide HCl (Reglan) 5 mg Q6H PRN IVP Nausea & Vomiting 05/23/18 12:00 06/22/18 11:59 05/23/18 11:55 Morphine Sulfate (Morphine Sulfate) 2 mg Q4H PRN IVP Severe Pain (Pain Scale 7-10) 05/22/18 20:15 05/29/18 20:14 05/23/18 08:44 Nitroglycerin (Ntg) 0.4 mg Q5MIN X 3 DOSES PRN SL Prn Chest Pain 05/22/18 20:30 06/21/18 20:29 Norepinephrine Bitartrate 4 mg/ Dextrose 250 ml @ 0 mls/hr Q24H IV 05/23/18 06:45 06/22/18 06:44 Ondansetron HCl (Zofran) 4 mg Q6H PRN IVP Nausea & Vomiting 05/22/18 23:01 06/21/18 23:00 05/23/18 08:15 Sodium Chloride 1,000 ml @ 50 mls/hr Q20H IV 05/22/18 23:00 06/21/18 22:59 05/22/18 23:11 Temazepam (Restoril) 15 mg HSPRN PRN ORAL Insomnia 05/22/18 21:00 05/29/18 20:59 Vancomycin HCl (Vanco rx to dose) 1 ea DAILY PRN MISC . 05/22/18 20:45 06/21/18 20:44 GI: Plan Problems: (1) Electrolyte imbalance (2) Abdominal pain (3) Vomiting (4) ESRD (end stage renal disease) (5) Renal insufficiency (6) Nausea vomiting and diarrhea (7) Dehydration (8) Anemia in chronic kidney disease (CKD) Plan Patient pending transfer to [facility] for possible pericardiocentesis. Follow-up cardiology recommendations Maintain n.p.o., IV hydration plus electrolyte correction Zofran as needed, Reglan as needed for persistent vomiting Monitor H&H, PRN transfusions PPI Start bowel regimen when patient is on diet given history of hypothyroidism Follow labs Discussed with Dr. Tomas. Thank you for this patient referral, we will follow. The patient was seen and examined at bedside and all new and available data was reviewed in the patients chart. I agree with the above findings, impression and plan. (Patient seen earlier today. Signature stamp does not reflect patient encounter time.). - MD Marsha Marshall,[facility] POWER CUTTING MACHINE OPERATOR May 23, 2018 16:38
[2018-05-23] MEDS ORDERED: Dyna-Hex 2% Top Sol 2oz TOPIC SCH (20:00)
--- NOTE | 2018-05-23 21:15 | History and Physical Report ---
DATE OF ADMISSION: 05/22/2018 CHIEF COMPLAINT: Abdominal pain associated with nausea and vomiting. HISTORY OF PRESENT ILLNESS: This is a 37-year-old very delightful gentleman with past medical history significant for diabetes type 1; history of end-stage renal disease, on peritoneal dialysis; hypertension; hypothyroidism; and polysensory peripheral neuropathy with diabetic neuropathy, who has presented to the hospital complaining about the abdominal pain associated with nausea, vomiting, diarrhea, and severe weakness, stated that he has been having symptoms since two days ago. He has been having five episodes of watery, nonbloody diarrhea, and a few episodes of nonbilious and nonbloody vomiting. He denies any history of abdominal surgery except the peritoneal catheter placement. He has noted that his blood pressure was running low and was feeling very weak. Denies any history of recent antibiotics or trauma. Denies any fever or chills. Denies any chest pain or shortness of breath. Shortly after initial evaluation in emergency, the patient was admitted to hospital with abdominal pain, nausea, and vomiting, possible due to the abdominal infection, postop such as peritonitis as well as hypotension with a pericardial effusion. PAST MEDICAL HISTORY/PAST SURGICAL HISTORY: As above. History of end-stage renal disease, on peritoneal dialysis; history of diabetic type 1; depression; hypothyroidism; metatarsal stress fracture of the left foot in December 2016; history of polyneuropathy; diabetic neuropathy; and history of meniscectomy of the right knee in 1994 as well as peritoneal catheter placement. MEDICATIONS AT HOME: Significant for insulin pen, history of Rocaltrol, vitamin D, 35 units of insulin Humalog, levothyroxine 88 mcg daily, Cozaar 50 mg daily, and Toujeo 35 units daily. ALLERGIES: Cefaclor with the hives and penicillin with hives. SOCIAL HISTORY: Denies any smoking, alcohol, or drugs. Denies any IV drug abuse. FAMILY HISTORY: His father had a history of HIV/AIDS as well as hypertension and lymphoma and no significant medical history in brother. REVIEW OF SYSTEMS: Mostly as above. Complained about abdominal pain associated with nausea and vomiting. Denies any hemoptysis or hematochezia. Denies any bright red blood per rectum. Complained about weakness and fatigue. PHYSICAL EXAMINATION: VITAL SIGNS: His vital signs on admission temperature 97.7 degrees, pulse of 98, respirations of 18, and blood pressure 92/68. GENERAL: The patient is awake and responsive, in severe abdominal pain. HEAD AND NECK: Pupils are equal and reactive to light. Extraocular movements are intact. Neck was supple. No JVD. LUNGS: Good air entry. No wheezing or rhonchi. Decreased air in the bases. HEART: S1 and S2. No murmur or gallop. Distant heart sounds. ABDOMEN: Soft. Tender in the left upper quadrant. Mildly distended. Peritoneal catheter in the lower quadrant was noted. No sign of infection. No rebound tenderness. No fluid shift. EXTREMITIES: No cyanosis, clubbing, or edema. Left lower extremity has a boot. No sign of infection. NEUROLOGICAL: Cranial nerves II through XII are grossly intact. Moves all four extremities. Gait was not assessed due to the patient's status. RECTAL: Refused and deferred. GENITOURINARY: Refused and deferred. LABORATORY AND IMAGING DATA: On admission from the ER, WBC of 7.9, hemoglobin 8.6, hematocrit 28, and platelet is 279,000. Sodium 133, potassium 4.0, chloride 97, bicarbonate 21, BUN 98, creatinine is 17.0, glucose is 35, and calcium is 7.8. AST of 27, ALT of 41, and alkaline phosphatase is 140. Troponin is 0.046. Total protein is 6.2. Albumin is 2.3. The patient had a chest x-ray, noted to have no acute finding. MRI of the abdomen was done, noted to have the moderate to large pericardial effusion, hepatomegaly, bilateral pleural effusion, trace ascites, and thickening of the gallbladder wall, nonspecific. Ultrasound of the abdomen was done, mild ascites, borderline splenomegaly, and medical renal disease. EKG with nonspecific ST changes, normal sinus rhythm, and ventricular rate of 60s. No ST elevation was identified. ASSESSMENT: 1. Abdominal pain, nausea, and vomiting, possible due to intraabdominal infection such as peritonitis. 2. Hypotension, possible due to septic shock. 3. Moderate to severe pericardial effusion. 4. End-stage renal disease, on the peritoneal dialysis. 5. Hypertension, presently hypotensive. 6. Uremia. 7. History of pericardial effusion. 8. Anemia of chronic disease. 9. History of Charcot joint of lower extremity. 10. Severe peripheral diabetic polyneuropathy. PLAN: Admit the patient to [facility]. We will monitor laboratory. Broad-spectrum antibiotics with Flagyl, gentamicin, and vancomycin. Follow up with 2D echo. DVT prophylaxis with heparin subcutaneous. Discussed with the extensively at the bedside. We will monitor the blood pressure closely. If the blood pressure drops overnight, we will consider to transfer to ICU. Code status is Full Code. Follow up with the Accu-Chek with sliding scale. Discussed case with Dr. Berlin Spears from Cardiology, Dr. Albert from General Surgery, Dr. Tree Pepe from Infectious Disease, Dr. Juan Moses from Pulmonary Critical Care, and Dr. Venkata Loving from Endocrine. We will consider to transfer the patient to [facility] if the status is progressively worsening. Rikki Gomes M.D. DR: SADIA JOB#: [id number] CC:
--- NOTE | 2018-05-23 22:45 | Consultation ---
DATE OF CONSULTATION: 05/23/2018 CARDIOLOGY CONSULTATION CONSULTING PHYSICIAN: Berlin Spears M.D REFERRING PHYSICIAN: 1. Juan Moses M.D. 2. Rikki Gomes M.D. REASON FOR REFERRAL: Pericardial effusion. HISTORY OF PRESENT ILLNESS: This is a 37-year-old gentleman with history of multiple medical problems as delineated below. The patient presented to the hospital here at [facility] because of generalized weakness and basically shortness of breath. He has been having some shortness of breath for the past few days, especially with activity. Over the past three nights, he has noticed that he feels more comfortable with the head of his bed up. He has had some shortness of breath early in the morning and he has been coughing some early in the morning. He has on questioning noted some pain in the chest below the left rib cage for some time now, that pain seemed to be present, but he does not think that the pain does get worse with coughing or wheezing of any kind. In either case, he presented to the emergency room here at [facility] with the above complaints as well as diarrhea, generalized weakness, and nausea. He has some episodes of loose stools for the past few days and he was noted to have a low blood pressure as opposed to his usual high blood pressure level. He presented to the emergency room at [facility]. He ended up having an MRI that showed a possibility of pericardial effusion and was admitted to the hospital. I was just asked to see the patient and the echocardiogram had shown some changes with early stages of tamponade physiology. The patient is in the intensive care unit. His latest blood pressure is 116/65. PAST MEDICAL HISTORY: Nevertheless, his past medical history is extensive and includes history of end-stage renal disease, initially on hemodialysis and subsequently on peritoneal dialysis. 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 FAMILY HISTORY: Hypertension in brother and cancer in father. SOCIAL HISTORY: He is a former smoker. Quit a few years ago. Does not drink alcoholic beverages. Denies any drug use. REVIEW OF SYSTEMS: GASTROINTESTINAL: Positive for history of nausea and literally dry heaves he indicates and some diarrhea. No bloody or black stools. GENITOURINARY: He does make some urine. There is no discomfort on urination. PULMONARY: He has occasional cough, especially blogs manager and really no wheezing. CONSTITUTIONAL: He has not been feeling well, but no high fevers have been noticed. He has had some sensation of feeling cold. NEUROLOGICAL: Negative. PHYSICAL EXAMINATION: GENERAL: Shows to be a young gentleman, in no apparent respiratory distress, although he is on face mask. NECK: Supple. He has some evidence of thyromegaly. I do not appreciate any jugular venous distention. LUNGS: Appear to show relatively clear. CARDIAC: Distant heart sounds, but regular rhythm. No heaves and no thrills noted. ABDOMEN: Soft. Positive bowel sounds. EXTREMITIES: There is some edema, may be on the right side a little bit more than on the left side. NEUROLOGICAL: He is awake, alert, responsive, and in no apparent distress. LABORATORY AND DIAGNOSTIC DATA: White count of 8.4, hemoglobin of 8.2, and platelet count of 212,000. He has a sodium of 130, potassium 4.5, chloride 94, bicarbonate of 19, BUN is 98, creatinine 16.2, and glucose of 207 up from 35 yesterday. His hemoglobin A1c is 9.1. His calcium is 7.1 with an albumin of 1.9. His total protein is 5.3. TSH is 14. Lipase is 42. His INR is 1 and PTT of 30. As far as his imaging is concerned, chest x-ray was performed in the emergency room and shows no acute findings. An MRI that was performed of his abdomen showed moderate to large pericardial effusion, bilateral pleural effusions, trace ascites, thickening of the wall of the gallbladder, which is moderate, nonspecific in nature. No biliary ductal dilatation. The spleen is unremarkable. Liver is enlarged. No other gross abnormalities. His abdominal ultrasound has been performed and shows moderate ascites, borderline splenomegaly, and medical renal disease. His echocardiogram has been performed showing the ejection fraction of 65%, severe left ventricular hypertrophy, moderate to severe circumferential pericardial effusion. The right ventricle and right atrial pseudonormalized tricuspid regurgitation with a PA pressure of 36 and his venous duplex study of the lower extremities, no evidence of thrombus within the common femoral or superficial femoral veins at all. His vital signs, his blood pressure is ranging anywhere between 83/57 to 116/68. His electrocardiogram performed yesterday shows some minor ST-segment elevation in multiple leads with suppression in V2 and possibly in V6 documented. [facility] records reviewed. The patient had an echocardiogram at [facility] in December 2017. At that time, it was mentioned that there was no evidence of pericardial effusion on that echocardiogram. His ejection fraction at that time 60% to 65% with normal wall function. ASSESSMENT AND PLAN: 1. Moderate to large pericardial effusion, new since December 2017. 2. Early tamponade physiology. 3. End-stage renal disease, on hemodialysis and subsequent peritoneal dialysis since last year. 4. Generalized weakness. 5. History of hypertension. 6. Left ventricular hypertrophy. 7. Pseudonormalized diastolic function. 8. Recent diarrhea. Dr. Gomes, this patient was seen in cardiac consultation. The patient's neck examination is very difficult, although he has somewhat of a large neck. He does not appear to have any significant jugular venous distention. However, his echocardiogram does show IVC dilatation suggestive that there is probably increased right atrial pressure possibly related to early tamponade physiology. His blood pressure has been ranging between 80s to most recently to hundred and teens. The etiology of the pericardial effusion is not yet apparent if viral in etiology. I doubt that this is end-stage renal disease, as the patient has been on dialysis for some time now and I would have expected him to have the pericardial effusion from uremia if it was present previously and that was not the case back in December 2017 when he had last echocardiogram at [facility]. Therefore, the etiology of the pericardial effusion is likely not uremic and likely possible etiologies include a viral in nature. Nevertheless, these signs and symptoms of early tamponade physiology needs to be monitored on a regular basis with serial echocardiograms and may require pericardiocentesis. He will be transferred to [facility] shortly and I suspect that he will follow up closely at [facility]. I have discussed my opinions with the patient's and the patient at the bedside and notified that the echocardiogram previously has not shown pericardial effusion in 2018. The patient remains in this hospital. We will be happy to follow the patient along and if needed at [facility] if consultation is requested. Berlin Spears M.D. DR: LINCOLN JOB#: [id number] CC:
--- NOTE | 2018-05-25 13:07 | Cardiology Report ---
APPROVED REPORT EKG Measurement Heart [id number] Normal sinus rhythm Nonspecific ST and T wave abnormality Abnormal ECG
== END 2018-05-23 15:15 | disposition short-term general hospital (02) | DRG 314 ==
LOC: EMR 17:00 → 2E 17:24 → EDBEDREQ 19:21 → EDBEDREQTM 20:11 → EDBEDREQSVC 20:11 → 2W 20:35 → EDBEDREQ 20:35 → ICU 05-23 04:42
PROC: 3E033XZ Introduction of Vasopressor into Peripheral Vein, Percutaneous Approach (ICD-10-PCS; principal; 2018-05-23)
DX: I31.3 Pericardial effusion (noninflammatory) (principal); N18.6 End stage renal disease; K65.9 Peritonitis, unspecified; I12.0 Hypertensive chronic kidney disease with stage 5 chronic kidney disease or end stage renal disease; I31.4 Cardiac tamponade; E10.22 Type 1 diabetes mellitus with diabetic chronic kidney disease; Z99.2 Dependence on renal dialysis; D63.1 Anemia in chronic kidney disease; Z87.891 Personal history of nicotine dependence; E10.42 Type 1 diabetes mellitus with diabetic polyneuropathy; E10.319 Type 1 diabetes mellitus with unspecified diabetic retinopathy without macular edema; E10.610 Type 1 diabetes mellitus with diabetic neuropathic arthropathy; E86.0 Dehydration; I95.9 Hypotension, unspecified; Z79.4 Long term (current) use of insulin
CPT/HCPCS: 36415; 71045; 74181; 76700; 80053; 82150; 82962; 83036; 83605; 83690; 84443; 84484; 85025; 85610; 85730; 87040; 87081; 93005; 93306; 93970; 94664; 94760; J1815; J2405; J2765